=== PATIENT | male | born 1950 | race Caucasian/White ===

== ENCOUNTER 2016-05-28 11:34 | Emergency (ER) | payer OTHER ==
[2016-05-28 11:42] VITALS: BP 146/70; TEMP 99.2; BMI 28.8
[2016-05-28 12:13] LABS: BASOPHILS # (AUTO) 0.1 K/uL (0-0.2); BASOPHILS % (AUTO) 1.3 % (0.0-3.0); EOSINOPHILS # (AUTO) 1.3 K/ul (0.0-0.7); EOSINOPHILS % (AUTO) 14.2 % (0.0-7.0); HEMATOCRIT 45.3 % (42.0-52.0); HEMOGLOBIN 15.4 g/dl (14.0-18.0); IMMATURE GRANULOCYTE % (AUTO) 0.7 % (0.0-5.0); LYMPHOCYTES # (AUTO) 2.3 K/uL (0.60-3.4); LYMPHOCYTES % (AUTO) 24.8 (10.0-50.0); MEAN CORPUSCULAR HEMOGLOBIN 29.5 pg (27.0-31.0); MEAN CORPUSCULAR VOLUME 86.8 fl (80.0-94.0); MONOCYTES # (AUTO) 0.7 K/uL (0.4-2.0); MONOCYTES % (AUTO) 7.8 (0-10); NEUTROPHILS # (AUTO) 4.7 K/ul (2.0-6.9); NEUTROPHILS % (AUTO) 51.2; PLATELET COUNT 235 10^3/uL (140-440); RED BLOOD COUNT 5.22 10^6/ul (4.70-6.10); WHITE BLOOD COUNT 9.23 K/ul (4.2-10.2)
--- NOTE | 2016-05-28 12:14 | ED.PDOC ---
General ED Provider: Dr. HAZEL SORIANO JR Chief Complaint: Chest Pain Stated Complaint: chest pain and pressure 2 months, worse over past two days deep inspiration, pain midsternal and right side chest, compression right sided pain[seen at [facility] for this but dx as ear infection]99.2 77 16 97% 146/70 7/ 10 productive cough of white thick sputum... local clinic sent to ED,productive cough thick white sputum, pain deep inspiration,tender could not get a deep breath,on antibiodics and steriods. patient notes he is on combivent and is on albuterol inhalers Time Seen by Physician: 12:26 Mode of Arrival: Walk-In Information Source: Patient Exam Limitations: No limitations Primary Care Provider: KAPIL LAGUERRE Nursing and Triage Documentation Reviewed and Agree: No Review of Systems - Review Of Systems Constitutional: Reports: Malaise All Other Systems: Other Past Medical History - Past Medical History Previously Healthy: Yes Endocrine: Reports: DM 2, Dyslipidemia Cardiovascular: Reports: CAD, Hypertension, CHF Respiratory: Reports: COPD, PE (BLOOD CLOT/LUNG) Hematological: Reports: None Gastrointestinal: Reports: None Genitourinary: Reports: None Neuro/Psych: Reports: CVA, Migraine, Depression Musculoskeletal: Reports: Arthritis Cancer: Reports: None - Surgical History General Surgical History: Reports: CABG (5 years ago) - Family History Family History: Reports: Unknown - Social History Smoking Status: Current every day smoker, Light tobacco smoker Amount Smokes or Chewing Tobacco Used Daily: since 8 yo decreased from 2ppd to 7 cig a day over past two months Hx Substance Use: No Alcohol Screening: None - Immunizations Tetanus Shot up to Date: No Physical Exam - Physical Exam Appearance: Well-appearing Pain Distress: Mild Eyes: KM, EOMI, Conjunctiva clear ENT: Ears normal, Nose normal, Oropharynx normal Neck: Supple Respiratory: Airway patent, Breath sounds diminished, Rhonchi, Wheezes Cardiovascular: RRR, Pulses normal, No rub, No murmur GI/: Soft, Nontender, No masses, Bowel sounds normal, No Organomegaly Musculoskeletal: Normal strength, ROM intact, No edema, No calf tenderness Skin: Warm, Dry, Normal color Neurological: Sensation intact, Motor intact, Reflexes intact, Cranial nerves intact, Alert, Oriented Psychiatric: Affect appropriate, Mood appropriate Interpretation - Radiology Interpretation Radiology Interpretation By: Radiologist Radiology Results: Positive (BRONCHITIS BRONCHIOLITIS) Exam Interpreted: CXR - EKG Interpretation Time of EKG #1: 12:05 Rate: Normal Rhythm: Sinus ST Segment: Other (RBBB) Re-Evaluation - Re-Evaluation Time of Re-Evaluation: 13:05 (dd neg at 434) Status: Unchanged Vital Signs Stable: Yes Appearance: NAD Critical Care Note - Critical Care Note Total Time (mins): 0 Course - Course Hematology/Chemistry: 05/28/16 12:00 05/28/16 12:00 Orders, Labs, Meds: Lab Review 05/28/16 12:00 WBC 9.23 RBC 5.22 Hgb 15.4 Hct 45.3 MCV 86.8 MCH 29.5 MCHC 34.0 RDW Coeff of [place] 14.2 Plt Count 235 Immature Gran % (Auto) 0.7 Neut % (Auto) 51.2 Lymph % (Auto) 24.8 [place] % (Auto) 7.8 Eos % (Auto) 14.2 H Baso % (Auto) 1.3 Immature Gran # (Auto) 0.1 Neut # 4.7 Lymph # 2.3 [place] # 0.7 Eos # 1.3 H Baso # 0.1 D-Dimer 0.47 Sodium 140 Potassium 3.9 Chloride 106 Carbon Dioxide 26 Anion Gap 11.9 BUN 34 H Creatinine 1.29 H Estimated GFR (MDRD) 56.00 BUN/Creatinine Ratio 26.35 Glucose 235 H Calcium 11.1 H Total Bilirubin 0.62 AST 17 ALT 26 Alkaline Phosphatase 73 Total Creatine Kinase 46 Troponin I 0.0120 B-Natriuretic Peptide 23 Total Protein 6.8 Albumin 3.6 Globulin 3.2 Albumin/Globulin Ratio 1.13 Orders Category Date Time Status EKG-(ED ONLY) Stat CARDIO 05/28/16 11:51 Completed NEBULIZER TREATMENT Stat CARDIO 05/28/16 15:20 Ordered NPO REMINDER: IMAGING ONCE CARE 05/28/16 13:09 Active B-TYPE NATRIURETIC PEPTIDE Stat LAB 05/28/16 12:00 Completed CBC W/ AUTO DIFF Stat LAB 05/28/16 12:00 Completed COMPREHENSIVE METABOLIC PANEL Stat LAB 05/28/16 12:00 Completed CREATINE KINASE Stat LAB 05/28/16 12:00 Completed D-DIMER Stat LAB 05/28/16 12:00 Completed TROPONIN I Stat LAB 05/28/16 12:00 Completed Ipratropium/Albuterol Neb [Duoneb] MEDS 05/28/16 15:20 Discontinued 1 vial NEB ONCE STA Sodium Chloride 0.9% [Sodium Chloride] 1,000 ml MEDS 05/28/16 14:28 Discontinued IV 200 mls/hr CT CHEST W/WO CONTRAST Stat RADS 05/28/16 13:08 Completed Medications Discontinued Medications Generic Name Dose Route Start Last Admin Trade Name Vigrinia PRN Reason Stop Dose Admin Albuterol/Ipratropium 1 vial 05/28/16 15:20 05/28/16 15:29 Duoneb NEB 05/28/16 15:21 1 vial ONCE STA Administration Sodium Chloride 1,000 mls @ 200 mls/hr 05/28/16 14:28 05/28/16 14:41 Sodium Chloride IV 05/28/16 19:27 200 mls/hr .Q5H STA Administration Vital Signs: Temp Pulse Resp BP Pulse Ox 05/28/16 11:34 99.2 F 77 16 146/70 H 97 Departure - Departure Time of Disposition: 15:46 Disposition: HOME SELF-CARE Discharge Problem: Bronchitis Instructions: Chronic Bronchitis (ED) Condition: Fair Pt referred to PMD for follow-up: Yes Additional Instructions: mucinex twice a day continue inhalers follow up with french translator next week as scheduled Prescriptions: Guaifenesin [Mucinex] 600 mg PO BID #60 tab.er.12h Allergies/Adverse Reactions: Allergies ibuprofen Adverse Reaction (Intermediate, Verified 05/28/16 11:50) Vomiting clopidogrel bisulfate [From Plavix] Adverse Reaction (Verified 05/28/16 11:50) codeine Adverse Reaction (Verified 05/28/16 11:50) doxycycline Adverse Reaction (Verified 05/28/16 11:50) levofloxacin [From Levaquin] Adverse Reaction (Verified 05/28/16 11:50) morphine Adverse Reaction (Verified 05/28/16 11:50) Home Medications: Ambulatory Orders Aspirin [Valerie Chewable] 81 mg PO DAILY 01/12/13 Lisinopril [Zestril] 20 mg PO DAILY 01/12/13 Theophylline Anhydrous [Theophylline] 300 mg PO BID 01/12/13 Fenofibrate Nanocrystallized [Fenofibrate] 160 mg PO DAILY 06/08/14 Budesonide/Formoterol Fumarate [Symbicort 160-4.5 Mcg Inhaler] 2 puff IH BID 04/29 Atorvastatin Calcium [Lipitor] 40 mg PO BEDTIME 07/19/15 Dexlansoprazole [Dexilant] 30 mg PO DAILY 12/02/15 Isosorbide Dinitrate 40 mg PO BID 12/02/15 Cholecalciferol (Vitamin D3) [Vitamin D3] 1,000 units PO DAILY 05/28/16 Guaifenesin [Mucinex] 600 mg PO BID #60 tab.er.12h 05/28/16 Prasugrel HCl [Effient] 5 mg PO DAILY 05/28/16
[2016-05-28 12:42] LABS: ALBUMIN 3.6 g/dL (3.4-5.0); ALBUMIN/GLOBULIN RATIO 1.13; ANION GAP 11.9; BILIRUBIN,TOTAL 0.62 mg/dL (0.00-1.20); BUN/CREATININE RATIO 26.35; CALCIUM 11.1 mg/dL (8.2-10.2); CREATININE 1.29 mg/dL (0.60-1.10); POTASSIUM 3.9 mmol/L (3.5-5.1); TOTAL PROTEIN 6.8 g/dL (5.8-8.1); TROPONIN I 0.012 ng/ml (0.0000-0.4000)
[2016-05-28] MEDS ORDERED: SODIUM CHLORIDE 1,000 ML IV STA (14:28)
--- NOTE | 2016-05-28 15:10 | CT ---
EXAM: CT examination of the chest without intravenous contrast followed by CT examination of the est with intravenous contrast, axial, sagittal, and coronal reconstructed images. Comparison: CT scan of the chest performed on 05/07/2016. Reason for study: Worsening shortness of air. FINDINGS: No pneumothorax, pleural effusion, focal consolidation. There is persistent prominence o f the bilateral lower lobe bronchi suggesting bronchiolitis / bronchitis. 5 mm nodule in the left u pper lobe (image 30) and 6.5 and 3.5 mm nodules in the left lower lobe (image 43, 44) are unchanged from the previous examination dated 05/07/2016. Atherosclerotic disease of the aorta and distal arterial vasculature to include the coronary vessels . Postoperative changes after midline sternotomy and intracardiac device placement. The liver, spleen, adrenal glands, and pancreas are unremarkable. There are several small cystic st ructures in both kidneys are too small to actively characterize but likely represent simple cysts. The gallbladder has been removed. Degenerative disease is seen in the thoracic spine with flowing anterior osteophytosis. Healing/heal ed right posterior T8 rib fracture. IMPRESSION: 1. Persistent prominence of the bilateral lower lobe bronchi suggesting bronchiolitis / bronchitis. 2. Similar appearing 5 mm left upper lobe nodule and to 6.5 and 3.5 mm left lower lobe nodules are unchanged in size from the prior CT examination performed on 05/07/2016. 6-month follow-up is recom mended to document stability. 3. Degenerative, atherosclerotic, and senescent changes as described.
[2016-05-28] MEDS ORDERED: DUONEB NEB STA (15:20)
== END 2016-05-28 16:04 | disposition home or self-care (01) ==
LOC: ED 11:34
DX: J42 Unspecified chronic bronchitis (principal); J44.1 Chronic obstructive pulmonary disease with (acute) exacerbation; F17.210 Nicotine dependence, cigarettes, uncomplicated; I10 Essential (primary) hypertension; E78.5 Hyperlipidemia, unspecified; E11.9 Type 2 diabetes mellitus without complications; I25.810 Atherosclerosis of coronary artery bypass graft(s) without angina pectoris; Z79.899 Other long term (current) drug therapy; Z86.711 Personal history of pulmonary embolism; Z86.73 Personal history of transient ischemic attack (TIA), and cerebral infarction without residual deficits
CPT/HCPCS: 36415; 80053; 82550; 83880; 84484; 85025; 85379; 93005; 93010; 94640; 99283

== ENCOUNTER 2016-07-12 07:32 | Outpatient (CLI) ==
[2016-07-12 08:11] LABS: CREATININE 1.13 mg/dL (0.60-1.10)
--- NOTE | 2016-07-12 09:41 | CT ---
EXAM: CT soft tissue neck with contrast. HISTORY: Sialoadenitis. Right neck swelling. Attention parotid gland. COMPARISON: Cervical spine CT 01/12/2013. TECHNIQUE: Multiple axial images of the neck were obtained following intravenous administration of 75 mL of Omnipaque 350, low osmolar. Images were reformatted in the sagittal and coronal plane. FINDINGS: There is moderate mucus within both maxillary sinuses with mild mucosal thickening in the ethmoid sinuses. No intracranial or intraorbital abnormality identified. The parotid and submandibular glands are symmetric. No significant inflammation is seen surrounding the salivary glands. No salivary gland calcifications or ductal dilatation identified. The pharyngeal soft tissues, epiglottis and laryngeal structures appear unremarkable. Subglottic ai rway is normal in caliber. Thyroid gland is normal in size. Small low-density left thyroid nodules suspected on axial image 85 . Additionally 0.8 x 0.5 cm nodule is seen posterior to the right thyroid lobe on axial image 83. Possible similar left-sided nodule measuring 0.6 x 0.4 cm on axial image 79 versus posterior extensi on of the left thyroid lobe. Nonenlarged mesenteric lymph nodes are present. Emphysematous changes present in the lung apices. There has been previous sternotomy. Degenerative changes present in the spine. Vascular structures of the neck are patent. Atherosclerotic calcifications are present. Left-sided electronic cardiac device noted. IMPRESSION: 1. No evidence for sialoadenitis or other acute abnormality of the neck soft tissues. 2. Sinusitis. 3. Small nodule posterior to the right thyroid gland. Correlate for clinical indications of parath yroid adenoma/hyperparathyroidism. Similar lesion on the left not excluded although this may simply be prominent posterior extension of the left thyroid lobe. Small left thyroid nodule also suspecte d.
== END 2016-07-12 07:33 | disposition home or self-care (01) ==
LOC: RAD 07:32
PROVIDERS: ATTEND Physician Assistant
DX: K11.20 Sialoadenitis, unspecified (principal)
CPT/HCPCS: 36415; 82565

== ENCOUNTER 2016-07-30 16:11 | Outpatient (CLI) ==
[2016-07-30 16:42] LABS: FLU INTERNAL QC INTERNAL QC VALID; RAPID FLU A NEGATIVE (NEGATIVE); RAPID FLU B NEGATIVE (NEGATIVE)
== END 2016-07-30 16:12 | disposition home or self-care (01) ==
LOC: LAB 16:11
PROVIDERS: ATTEND Physician Assistant
DX: R51 Headache (principal)
CPT/HCPCS: 87804

== ENCOUNTER 2016-08-05 14:18 | Emergency (ER) | payer OTHER ==
[2016-08-05 14:18] VITALS: BMI 28.8
[2016-08-05 14:24] VITALS: BP 117/76; TEMP 97.3
--- NOTE | 2016-08-05 14:35 | ED.PDOC ---
General ED Provider: Dr. HAZEL SORIANO JR Chief Complaint: Respiratory Complaint Stated Complaint: patient states he has been sick for approx. 2 months with upper resp. sx. states he has been having yellow drainage. states he has taken several antibiotics (including ampicillin and biaxin) states he has not gotten any better. c/o cough prod of thick white phlegm.[End]97.3 79 16 97% 117 /76 7/10 usingover the counter decongestants and antibiotics(last ampicillin). nasal spray. pharmacy called, no loc has had bactrim on 07/30 and augmentin on 07/08 also doxycycline in april Time Seen by Physician: 14:35 Mode of Arrival: Walk-In Information Source: Patient Exam Limitations: No limitations Primary Care Provider: KAPIL LAGUERRE Nursing and Triage Documentation Reviewed and Agree: No Review of Systems - Review Of Systems Constitutional: Reports: Malaise Respiratory: Reports: Cough All Other Systems: Other Past Medical History - Past Medical History Previously Healthy: Yes Endocrine: Reports: DM 2, Dyslipidemia Cardiovascular: Reports: CAD, Hypertension, CHF Respiratory: Reports: COPD, PE (BLOOD CLOT/LUNG) Hematological: Reports: Other Gastrointestinal: Reports: None Genitourinary: Reports: None, CKD Neuro/Psych: Reports: CVA, Migraine, Depression Musculoskeletal: Reports: Arthritis Cancer: Reports: None - Surgical History General Surgical History: Reports: CABG (5 years ago) - Family History Family History: Reports: Unknown - Social History Smoking Status: Current every day smoker, Light tobacco smoker Hx Substance Use: No Alcohol Screening: None Physical Exam - Physical Exam Appearance: Ill-appearing Ill-appearing: Mild Pain Distress: Mild Eyes: KM, EOMI, Conjunctiva clear ENT: Ears normal, Nose normal, Oropharynx normal Neck: Supple Respiratory: Airway patent, Breath sounds clear, Breath sounds equal, Respirations nonlabored Cardiovascular: RRR, Pulses normal, No rub, No murmur GI/: Soft, Nontender, No masses, Bowel sounds normal, No Organomegaly Musculoskeletal: Normal strength, ROM intact, No edema, No calf tenderness Skin: Warm, Dry, Normal color Neurological: Sensation intact, Motor intact, Reflexes intact, Cranial nerves intact, Alert, Oriented Critical Care Note - Critical Care Note Total Time (mins): 5 Course - Course Hematology/Chemistry: 08/05/16 15:05 08/05/16 15:05 Orders, Labs, Meds: Lab Review 08/05/16 15:05 WBC 9.85 RBC 5.08 Hgb 15.0 Hct 43.6 MCV 85.8 MCH 29.5 MCHC 34.4 RDW Coeff of [place] 13.7 Plt Count 241 Immature Gran % (Auto) 0.6 Neut % (Auto) 51.1 Lymph % (Auto) 29.6 [place] % (Auto) 7.2 Eos % (Auto) 10.1 H Baso % (Auto) 1.4 Immature Gran # (Auto) 0.1 Neut # 5.0 Lymph # 2.9 [place] # 0.7 Eos # 1.0 H Baso # 0.1 Sodium 137 Potassium 4.0 Chloride 109 H Carbon Dioxide 20 L Anion Gap 12.0 BUN 22 H Creatinine 0.96 Estimated GFR (MDRD) 79.00 BUN/Creatinine Ratio 22.91 Glucose 161 H Calcium 11.0 H Total Bilirubin 0.50 AST 16 ALT 15 Alkaline Phosphatase 117 B-Natriuretic Peptide 30 Total Protein 6.9 Albumin 3.4 Globulin 3.5 Albumin/Globulin Ratio 0.97 Influenza A (Rapid) Negative Influenza B (Rapid) Negative Orders Category Date Time Status B-TYPE NATRIURETIC PEPTIDE Stat LAB 08/05/16 15:05 Completed BLOOD CULTURE Stat LAB 08/05/16 15:05 Completed CBC W/ AUTO DIFF Stat LAB 08/05/16 15:05 Completed COMPREHENSIVE METABOLIC PANEL Stat LAB 08/05/16 15:05 Completed MOLECULAR GROUP A STREP Stat LAB 08/05/16 15:05 Completed RAPID FLU A/B Stat LAB 08/05/16 15:05 Completed STREP SCREEN Stat LAB 08/05/16 15:05 Completed CHEST, 2 VIEWS PA & LAT Stat RADS 08/05/16 14:51 Completed Vital Signs: Temp Pulse Resp BP Pulse Ox 08/05/16 14:20 97.3 F L 79 16 117/76 97 Departure - Departure Time of Disposition: 16:07 Disposition: HOME SELF-CARE Discharge Problem: COPD exacerbation Instructions: COPD (Chronic Obstructive Pulmonary Disease) (ED) Condition: Fair Pt referred to PMD for follow-up: Yes Additional Instructions: RECOMMEND STOP SMOKING ANTIBIOTIC UNTIL GONE RECOMMEND QUIT SMOKING Prescriptions: Azithromycin [Zithromax] 250 mg PO DIRECTED #6 tablet Guaifenesin/Dextromethorphan [Guaifenesin Dm Syrup] 10 ml PO QID PRN #120 syrup PRN Reason: Cough Allergies/Adverse Reactions: Allergies ibuprofen Adverse Reaction (Intermediate, Verified 08/05/16 14:24) Vomiting clopidogrel bisulfate [From Plavix] Adverse Reaction (Verified 08/05/16 14:24) codeine Adverse Reaction (Verified 08/05/16 14:24) doxycycline Adverse Reaction (Verified 08/05/16 14:24) levofloxacin [From Levaquin] Adverse Reaction (Verified 08/05/16 14:24) morphine Adverse Reaction (Verified 08/05/16 14:24) Home Medications: Ambulatory Orders Aspirin [Valerie Chewable] 81 mg PO DAILY 01/12/13 Lisinopril [Zestril] 20 mg PO DAILY 01/12/13 Theophylline Anhydrous [Theophylline] 300 mg PO BID 01/12/13 Fenofibrate Nanocrystallized [Fenofibrate] 160 mg PO DAILY 06/08/14 Atorvastatin Calcium [Lipitor] 40 mg PO BEDTIME 07/19/15 Dexlansoprazole [Dexilant] 30 mg PO DAILY 12/02/15 Isosorbide Dinitrate 2 tab PO BID 12/02/15 Cholecalciferol (Vitamin D3) [Vitamin D3] 1,000 units PO DAILY 05/28/16 Prasugrel HCl [Effient] 5 mg PO DAILY 05/28/16 Albuterol Sulfate 0.083% Neb [Albuterol 0.083% Neb] 1 vial NEB RTQ8H 08/05/16 Amlodipine Besylate 2.5 mg PO DAILY 08/05/16 Azithromycin [Zithromax] 250 mg PO DIRECTED #6 tablet 08/05/16 Docusate Sodium [Stool Softener] 100 mg PO PRN PRN 08/05/16 Fluticasone/Salmeterol 250/50 [Advair 250-50 Diskus] 1 puff IH BID 08/05/16 Guaifenesin/Dextromethorphan [Guaifenesin Dm Syrup] 10 ml PO QID PRN #120 syrup 08/05/16 Hydrocodone Bit/Acetaminophen [[place] 10-325] 1 tab PO PRN PRN 08/05/16 Insulin NPL/Insulin Lispro [Humalog Mix 75-25] 4 unit SUBCUT BID 08/05/16
[2016-08-05 15:15] LABS: BASOPHILS # (AUTO) 0.1 K/uL (0-0.2); BASOPHILS % (AUTO) 1.4 % (0.0-3.0); EOSINOPHILS % (AUTO) 10.1 % (0.0-7.0); HEMATOCRIT 43.6 % (42.0-52.0); IMMATURE GRANULOCYTE % (AUTO) 0.6 % (0.0-5.0); LYMPHOCYTES # (AUTO) 2.9 K/uL (0.60-3.4); LYMPHOCYTES % (AUTO) 29.6 (10.0-50.0); MEAN CORPUSCULAR HEMOGLOBIN 29.5 pg (27.0-31.0); MEAN CORPUSCULAR HGB CONC 34.4 (31.8-35.4); MEAN CORPUSCULAR VOLUME 85.8 fl (80.0-94.0); MONOCYTES # (AUTO) 0.7 K/uL (0.4-2.0); MONOCYTES % (AUTO) 7.2 (0-10); NEUTROPHILS % (AUTO) 51.1; PLATELET COUNT 241 10^3/uL (140-440); RED BLOOD COUNT 5.08 10^6/ul (4.70-6.10); WHITE BLOOD COUNT 9.85 K/ul (4.2-10.2)
[2016-08-05 15:33] LABS: FLU INTERNAL QC INTERNAL QC VALID; RAPID FLU A NEGATIVE (NEGATIVE); RAPID FLU B NEGATIVE (NEGATIVE)
[2016-08-05 15:36] LABS: ALBUMIN 3.4 g/dL (3.4-5.0); ALBUMIN/GLOBULIN RATIO 0.97; BILIRUBIN,TOTAL 0.5 mg/dL (0.00-1.20); BUN/CREATININE RATIO 22.91; CREATININE 0.96 mg/dL (0.60-1.10); TOTAL PROTEIN 6.9 g/dL (5.8-8.1)
--- NOTE | 2016-08-05 16:10 | DI ---
EXAM: CHEST FRONTAL AND LATERAL VIEWS HISTORY: Cough. COMPARISON: 05/06/2016 FINDINGS: Upper limit normal heart size is stable. At least mild aortic atherosclerosis. Prior diane rnotomy. Left-sided pacemaker unit is stable. Mild hyperinflation. No acute infiltrates are seen. There is no consolidation, visible pleural fluid or pneumothorax. Bones reveal no acute fracture. IMPRESSION: No acute cardiopulmonary process.
== END 2016-08-05 16:24 | disposition home or self-care (01) ==
LOC: ED 14:18
DX: J44.1 Chronic obstructive pulmonary disease with (acute) exacerbation (principal); E11.9 Type 2 diabetes mellitus without complications; E78.5 Hyperlipidemia, unspecified; I50.9 Heart failure, unspecified; I10 Essential (primary) hypertension; I25.810 Atherosclerosis of coronary artery bypass graft(s) without angina pectoris; N18.9 Chronic kidney disease, unspecified; F17.210 Nicotine dependence, cigarettes, uncomplicated; Z79.899 Other long term (current) drug therapy; Z86.711 Personal history of pulmonary embolism; Z86.73 Personal history of transient ischemic attack (TIA), and cerebral infarction without residual deficits
CPT/HCPCS: 36415; 80053; 83880; 85025; 87040; 87651; 87804; 87880; 99283

== ENCOUNTER 2016-09-02 13:48 | Outpatient (CLI) | payer OTHER ==
[2016-09-02 15:06] LABS: ALBUMIN 3.1 g/dL (3.4-5.0); ANION GAP 10.9; BUN/CREATININE RATIO 20.18; CALCIUM 10.4 mg/dL (8.2-10.2); CREATININE 1.09 mg/dL (0.60-1.10); PHOSPHORUS 1.9 mg/dL (2.3-3.7); POTASSIUM 3.9 mmol/L (3.5-5.1)
== END 2016-09-02 13:49 | disposition home or self-care (01) ==
LOC: LAB 13:48
PROVIDERS: ATTEND Internal Medicine Endocrinology, Diabetes & Metabolism
DX: E83.52 Hypercalcemia (principal)
CPT/HCPCS: 36415; 80069; 82164; 82306; 82652; 83970; 84443

== ENCOUNTER 2016-10-25 10:35 | Outpatient (CLI) | payer OTHER ==
--- NOTE | 2016-10-25 11:16 | DI ---
EXAM: PA and lateral views of the chest HISTORY: Chest tightness COMPARISON: Chest x-ray 08/05/2016 and multiple priors including CT chest 05/28/2016 FINDINGS: The cardiomediastinal silhouette is unchanged with sternotomy wires and lead wires. Ther e is no pneumothorax or pleural effusion. There is no consolidation, nodule or mass. The osseous s tructures demonstrate mild degenerative disease. IMPRESSION: No acute cardiopulmonary process
[2016-10-25 11:29] LABS: BASOPHILS # (AUTO) 0.1 K/uL (0-0.2); BASOPHILS % (AUTO) 1.2 % (0.0-3.0); EOSINOPHILS # (AUTO) 0.7 K/ul (0.0-0.7); EOSINOPHILS % (AUTO) 8.5 % (0.0-7.0); HEMATOCRIT 41.8 % (42.0-52.0); HEMOGLOBIN 14.5 g/dl (14.0-18.0); IMMATURE GRANULOCYTE % (AUTO) 0.9 % (0.0-5.0); LYMPHOCYTES # (AUTO) 2.5 K/uL (0.60-3.4); LYMPHOCYTES % (AUTO) 32.1 (10.0-50.0); MEAN CORPUSCULAR HEMOGLOBIN 29.9 pg (27.0-31.0); MEAN CORPUSCULAR HGB CONC 34.7 (31.8-35.4); MEAN CORPUSCULAR VOLUME 86.2 fl (80.0-94.0); MONOCYTES # (AUTO) 0.8 K/uL (0.4-2.0); MONOCYTES % (AUTO) 9.8 (0-10); NEUTROPHILS # (AUTO) 3.7 K/ul (2.0-6.9); NEUTROPHILS % (AUTO) 47.5; PLATELET COUNT 204 10^3/uL (140-440); RED BLOOD COUNT 4.85 10^6/ul (4.70-6.10); WHITE BLOOD COUNT 7.79 K/ul (4.2-10.2)
--- NOTE | 2016-10-25 11:44 | US ---
Bilateral lower extremity venous Doppler HISTORY: Pain and tenderness Bilateral lower extremity. FINDINGS: Lower extremity venous structures examined for spontaneous flow, compression and augmenta tion. The common femoral vein, and greater saphenous, profunda, femoral, popliteal, peroneal, anter ior tibial and posterior tibial veins were examined. Visualized vessels are patent to spontaneous f low, compression and augmentation. IMPRESSION: 1.. No evidence of deep venous thrombosis Bilateral lower extremity.
[2016-10-25 11:48] LABS: ALBUMIN 3.2 g/dL (3.4-5.0); ALBUMIN/GLOBULIN RATIO 1.07; ANION GAP 9.7; BILIRUBIN,TOTAL 0.48 mg/dL (0.00-1.20); BUN/CREATININE RATIO 25.23; CREATININE 1.07 mg/dL (0.60-1.10); POTASSIUM 4.7 mmol/L (3.5-5.1); TOTAL PROTEIN 6.2 g/dL (5.8-8.1)
== END 2016-10-25 10:36 | disposition home or self-care (01) ==
LOC: RAD 10:35
PROVIDERS: ATTEND Physician Assistant
DX: R60.0 Localized edema (principal); R07.89 Other chest pain
CPT/HCPCS: 36415; 80053; 85025; 93005; 93010

== ENCOUNTER 2016-10-27 06:23 | Outpatient (CLI) | payer OTHER ==
--- NOTE | 2016-10-27 10:35 | ECHO2D ---
Date of Exam: 10/27/2016 Ordering Physician: KAPIL LAGUERRE Reason for Echo: LOWER EXTREMITY EDEMA, HYPERTENSION, CABG 2013, PACEMAKER 2015 M-Mode Normal Adult Results LV Dimensions Normal Adult Results AoV Opening excursions >1.6 >1.6 LVEDD-base- 3.5-5.8 4.8 Ao root dimensions 2.0-3.7 3.4 LVESD-base- 3.1-4.6 L. Atrium dimensions 1.9-3.8 4.9 Post. Wall thickness 0.8-1.1 1.5 IV septum (thickness) 0.7-1.2 1.4 Post. Wall excursion 0.72-1.3 NORMAL Septal motion 0.6 Systolic motion R. Ventricular cavity 1.5-2.0 NORMAL LVEF 60% 53% Paradoxical septal wall motion NORMAL 2-D :MILDLY HYPOKINETIC SEPTAL WALL. NORMAL VALVES. NO EFFUSION, NO THROMBOSIS. ENLARGED LEFT ATRIAL CAVITY. NORMAL LEFT VENTRICLE SIZE M-MODE: MV: NORMAL AV: NORMAL TV: NORMAL PV: CHAMBER SIZE: ENLARGED LEFT ATRIAL CAVITY WALL MOTION: MILDLY HYPOKINETIC SEPTUM PERICARDIUM: NORMAL INTERPRETATION: 1. LEFT VENTRICULAR HYPERTROPHY WITH ENLARGED LEFT ATRIAL CAVITY 2. HYPOKINETIC SEPTUM WITH LEFT VENTRICULAR EJECTION FRACTION 53% 3. NORMAL VALVES 4. NORMAL LEFT VENTRICLE SIZE MTDD
== END 2016-10-27 06:24 | disposition home or self-care (01) ==
LOC: CAR 06:23
PROVIDERS: ATTEND Physician Assistant
DX: R60.0 Localized edema (principal)

== ENCOUNTER 2016-11-04 09:44 | Outpatient (CLI) ==
--- NOTE | 2016-11-04 13:45 | DI ---
Exam: Three views of the right foot Clinical indication: Edema. Findings: There is no gross soft tissue abnormality. There is a surgical clip within the medial aspect of the ankle. There is an enthesophyte on the calcaneus at the insertion of plantar fascia. Otherwise, there are no fractures, dislocations, physeal injuries or other significant bony abnormality. Impression: 1. Enthesophyte on the calcaneus at the insertion of plantar fascia. 2. Otherwise negative radiographs of the right foot.
--- NOTE | 2016-11-04 13:47 | DI ---
EXAM: RIGHT ANKLE THREE VIEWS HISTORY: Localized edema without injury. FINDINGS: No comparison. The bone and joint structures of the ankle appear normal. No joint effus ion is seen. Diffuse subcutaneous edema. A few scattered surgical clips along the lateral leg soft tissues. IMPRESSION: Diffuse soft tissue edema. Bone joint structures of the ankle are within normal limits.
== END 2016-11-04 09:45 | disposition home or self-care (01) ==
LOC: RAD 09:44
PROVIDERS: ATTEND Physician Assistant
DX: R60.0 Localized edema (principal)

== ENCOUNTER 2016-11-10 15:57 | Outpatient (CLI) ==
[2016-11-10 16:32] LABS: ALBUMIN 3.5 g/dL (3.4-5.0); ANION GAP 15.8; BUN/CREATININE RATIO 26.6; CALCIUM 10.8 mg/dL (8.2-10.2); CREATININE 1.09 mg/dL (0.60-1.10); PHOSPHORUS 2.5 mg/dL (2.3-3.7); POTASSIUM 3.8 mmol/L (3.5-5.1)
== END 2016-11-10 15:58 | disposition home or self-care (01) ==
LOC: LAB 15:57
PROVIDERS: ATTEND Internal Medicine Endocrinology, Diabetes & Metabolism
DX: E83.52 Hypercalcemia (principal)
CPT/HCPCS: 36415; 80069; 83970

== ENCOUNTER 2016-11-23 17:22 | Emergency (ER) | payer OTHER ==
[2016-11-23 17:34] VITALS: BP 130/75; TEMP 97.6; BMI 28.1
[2016-11-23] MEDS ORDERED: GI COCKTAIL PO STA (17:45)
[2016-11-23 18:02] LABS: BASOPHILS # (AUTO) 0.1 K/uL (0-0.2); BASOPHILS % (AUTO) 1.1 % (0.0-3.0); EOSINOPHILS # (AUTO) 0.9 K/ul (0.0-0.7); HEMATOCRIT 42.4 % (42.0-52.0); HEMOGLOBIN 14.9 g/dl (14.0-18.0); IMMATURE GRANULOCYTE % (AUTO) 0.9 % (0.0-5.0); LYMPHOCYTES # (AUTO) 2.5 K/uL (0.60-3.4); MEAN CORPUSCULAR HEMOGLOBIN 29.6 pg (27.0-31.0); MEAN CORPUSCULAR HGB CONC 35.1 (31.8-35.4); MEAN CORPUSCULAR VOLUME 84.3 fl (80.0-94.0); MONOCYTES # (AUTO) 0.8 K/uL (0.4-2.0); MONOCYTES % (AUTO) 8.8 (0-10); NEUTROPHILS # (AUTO) 4.2 K/ul (2.0-6.9); NEUTROPHILS % (AUTO) 49.2; PLATELET COUNT 227 10^3/uL (140-440); RED BLOOD COUNT 5.03 10^6/ul (4.70-6.10); WHITE BLOOD COUNT 8.51 K/ul (4.2-10.2)
--- NOTE | 2016-11-23 18:08 | ED.PDOC ---
General ED Provider: Dr. NOVA NIEVES Chief Complaint: Abdominal Pain Stated Complaint: CHRONIC ABDOMINAL PAIN Time Seen by Physician: 17:30 (NO NEW CHANGES IN LOCATION OR PAIN PATTERN) Mode of Arrival: Walk-In Information Source: Patient Exam Limitations: No limitations Primary Care Provider: KAPIL LAGUERRE Nursing and Triage Documentation Reviewed and Agree: Yes GI Complaint Exam - Abdominal Pain Complaint/Exam Onset: Gradual Duration: CHRONIC Symptoms Are: Still present Timing: Intermittent Initial Severity: Mild Current Severity: Mild Location of Pain: Epigastric Character: Reports: Aching Aggravating: Reports: None Alleviating: Reports: None Associated Signs and Symptoms: Denies: Diaphoresis, Fever, Cough, Chest pain, Dizziness, Back pain, Constipation, Blood in stool, Dysuria, Urinary frequency, Decreased urine output, Decreased appetite, Discharge, Nausea, Vomiting, Diarrhea, Decreased activity Related History: Reports: Similar episode AAA Risk Factors: Reports: Hypertension Cardiac Risk Factors: Reports: DM, Hypertension Testicular Torsion Risk Factors: Reports: None Surgical Obstruction Risk Factors: Reports: None Abdominal Findings: Present: None Differential Diagnoses: Appendicitis, Bowel Obstruction, Constipation, Diverticulitis, Gastroenteritis, UTI Quality Indicators for AMI: EKG in 10min. Quality Indicators for Cardiac Chest Pain: EKG in 10min. Quality Indicator For Non-Traumatic Chest Pain/Syncope: EKG Performed Review of Systems - Review Of Systems Constitutional: Reports: No symptoms Eyes: Reports: No symptoms Ears, Nose, Mouth, Throat: Reports: No symptoms Respiratory: Reports: No symptoms Cardiac: Reports: No symptoms GI: Reports: Abdominal pain : Reports: No symptoms Musculoskeletal: Reports: No symptoms Skin: Reports: No symptoms Neurological: Reports: No symptoms Endocrine: Reports: No symptoms Hematologic/Lymphatic: Reports: No symptoms All Other Systems: Reviewed and Negative Past Medical History - Past Medical History Previously Healthy: Yes Endocrine: Reports: DM 2, Dyslipidemia Cardiovascular: Reports: CAD, Hypertension, CHF Respiratory: Reports: COPD, PE (BLOOD CLOT/LUNG) Hematological: Reports: Other Gastrointestinal: Reports: None Genitourinary: Reports: None, CKD Neuro/Psych: Reports: CVA, Migraine, Depression Musculoskeletal: Reports: Arthritis Cancer: Reports: None Other Pertinent Past Medical History: htn dm chl cva chf copd kd 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 - Surgical History General Surgical History: Reports: CABG (5 years ago) - Family History Family History: Reports: Unknown - Social History Smoking Status: Current every day smoker Hx Substance Use: No Alcohol Screening: None - Immunizations Tetanus Shot up to Date: Yes Physical Exam - Physical Exam Appearance: Well-appearing, No pain distress, Well-nourished Eyes: KM, EOMI, Conjunctiva clear ENT: Ears normal, Nose normal, Oropharynx normal Respiratory: Airway patent, Breath sounds clear, Breath sounds equal, Respirations nonlabored Cardiovascular: RRR, Pulses normal, No rub, No murmur GI/: Soft, Nontender, No masses, Bowel sounds normal, No Organomegaly Musculoskeletal: Normal strength, ROM intact, No edema, No calf tenderness Skin: Warm, Dry, Normal color Neurological: Sensation intact, Motor intact, Reflexes intact, Cranial nerves intact, Alert, Oriented Psychiatric: Affect appropriate, Mood appropriate Interpretation - Radiology Interpretation Radiology Interpretation By: Radiologist Radiology Results: No acute changes Critical Care Note - Critical Care Note Total Time (mins): 0 Course - Course Hematology/Chemistry: 11/23/16 17:50 Orders, Labs, Meds: Lab Review 11/23/16 17:50 WBC 8.51 RBC 5.03 Hgb 14.9 Hct 42.4 MCV 84.3 MCH 29.6 MCHC 35.1 RDW Coeff of [place] 14.2 Plt Count 227 Immature Gran % (Auto) 0.9 Neut % (Auto) 49.2 Lymph % (Auto) 29.0 [place] % (Auto) 8.8 Eos % (Auto) 11.0 H Baso % (Auto) 1.1 Immature Gran # (Auto) 0.1 Neut # 4.2 Lymph # 2.5 Carbon # 0.8 Eos # 0.9 H Baso # 0.1 Orders Category Date Time Status EKG-(ED ONLY) Stat CARDIO 11/23/16 17:44 Completed AMYLASE Stat LAB 11/23/16 17:50 Received CBC W/ AUTO DIFF Stat LAB 11/23/16 17:50 Completed COMPREHENSIVE METABOLIC PANEL Stat LAB 11/23/16 17:50 Received CREATINE KINASE Stat LAB 11/23/16 17:50 Received H. PYLORI SCREEN Stat LAB 11/23/16 17:50 Received LIPASE Stat LAB 11/23/16 17:50 Received TROPONIN I Stat LAB 11/23/16 17:50 Received URINALYSIS C & S IF INDICATED Stat LAB 11/23/16 17:43 Uncollected Mag-Al Plus//Lidocaine [Gi Cocktail] MEDS 11/23/16 17:45 Discontinued 30 ml PO ONCE STA CHEST, 2 VIEWS PA & LAT Stat RADS 11/23/16 17:[address] ABDOMEN/PELVIS WO CONTRAST Stat RADS 11/23/16 17:44 Ordered Medications Discontinued Medications Generic Name Dose Route Start Last Admin Trade Name [place] PRN Reason Stop Dose Admin Al Hydroxide/Mg Hydroxide 30 ml 11/23/16 17:45 11/23/16 17:52 Gi Cocktail PO 11/23/16 17:46 30 ml ONCE STA Administration Vital Signs: Temp Pulse Resp BP Pulse Ox 11/23/16 17:26 97.6 F 75 18 130/75 96 Departure - Departure Time of Disposition: 19:00 Disposition: HOME SELF-CARE Discharge Problem: Abdominal pain Instructions: Abdominal Pain (ED) Condition: Good Pt referred to PMD for follow-up: No Allergies/Adverse Reactions: Allergies ibuprofen Adverse Reaction (Intermediate, Verified 11/23/16 17:26) Vomiting clopidogrel bisulfate [From Plavix] Adverse Reaction (Verified 11/23/16 17:26) codeine Adverse Reaction (Verified 11/23/16 17:26) doxycycline Adverse Reaction (Verified 11/23/16 17:26) levofloxacin [From Levaquin] Adverse Reaction (Verified 11/23/16 17:26) morphine Adverse Reaction (Verified 11/23/16 17:26) Home Medications: Ambulatory Orders Aspirin [Valerie Chewable] 81 mg PO DAILY 01/12/13 Lisinopril [Zestril] 20 mg PO DAILY 01/12/13 Theophylline Anhydrous [Theophylline] 300 mg PO BID 01/12/13 Fenofibrate Nanocrystallized [Fenofibrate] 160 mg PO DAILY 06/08/14 Atorvastatin Calcium [Lipitor] 40 mg PO BEDTIME 07/19/15 Dexlansoprazole [Dexilant] 30 mg PO DAILY 12/02/15 Isosorbide Dinitrate 2 tab PO BID 12/02/15 Cholecalciferol (Vitamin D3) [Vitamin D3] 1,000 units PO DAILY 05/28/16 Prasugrel HCl [Effient] 5 mg PO DAILY 05/28/16 Albuterol Sulfate 0.083% Neb [Albuterol 0.083% Neb] 1 vial NEB RTQ8H 08/05/16 Amlodipine Besylate 2.5 mg PO DAILY 08/05/16 Azithromycin [Zithromax] 250 mg PO DIRECTED #6 tablet 08/05/16 Docusate Sodium [Stool Softener] 100 mg PO PRN PRN 08/05/16 Fluticasone/Salmeterol 250/50 [Advair 250-50 Diskus] 1 puff IH BID 08/05/16 Guaifenesin/Dextromethorphan [Guaifenesin Dm Syrup] 10 ml PO QID PRN #120 syrup 08/05/16 Hydrocodone Bit/Acetaminophen [[place] 10-325] 1 tab PO PRN PRN 08/05/16 Insulin NPL/Insulin Lispro [Humalog Mix 75-25] 4 unit SUBCUT BID 08/05/16 Disposition Discussed With: Patient
[2016-11-23 18:17] LABS: H. PYLORI ANTIBODY NEGATIVE (NEGATIVE); H.PYLORI INTERNAL QC INTERNAL QC VALID
[2016-11-23 18:28] LABS: ALANINE AMINOTRANSFERASE 73 U/L (12-78); ALBUMIN 3.1 g/dL (3.4-5.0); ALBUMIN/GLOBULIN RATIO 0.97; ALKALINE PHOSPHATASE 247 U/L (56-119); AMYLASE 54 U/L (25-115); ANION GAP 13.9; ASPARTATE AMINO TRANSFERASE 42 U/L (15-37); BILIRUBIN,TOTAL 0.54 mg/dL (0.00-1.20); BLOOD UREA NITROGEN 20 mg/dL (7-18); BUN/CREATININE RATIO 24.39; CARBON DIOXIDE 21 mmol/L (23-31); CHLORIDE 106 mmol/L (98-107); CREATINE KINASE 39 U/L; CREATININE 0.82 mg/dL (0.60-1.10); GLUCOSE 140 mg/dL (82-115); LIPASE 68 U/L (8-78); POTASSIUM 3.9 mmol/L (3.5-5.1); SODIUM 137 mmol/L (136-145); TOTAL PROTEIN 6.3 g/dL (5.8-8.1)
[2016-11-23 18:33] LABS: BILIRUBIN,URINE Negative (NEGATIVE); KETONES,URINE Negative (NEGATIVE); LEUKOCYTE ESTERASE ,URINE Negative (NEGATIVE); NITRITE,URINE Negative (NEGATIVE); PROTEIN,URINE 2+ (NEGATIVE); URINE, BLOOD Negative (NEGATIVE)
[2016-11-23 18:41] LABS: ADD URINE MICROSCOPIC YES
[2016-11-23 18:49] LABS: BACTERIA,URINE TRACE (NOT PRESENT)
--- NOTE | 2016-11-23 19:08 | CT ---
EXAM: CT abdomen and pelvis without contrast. HISTORY: Abdominal pain. TECHNIQUE: Multi-slice transaxial helical CT. Coronal and sagittal reformatons were performed. COMPARISON: 07/19/2015 FINDINGS: The heart is borderline enlarged. Pacer leads are present within the right heart. Operative change s of midline sternotomy are partially imaged. Bibasilar dependent atelectasis is present. Left bas ilar pulmonary nodule measures up to 7 mm in size, not significantly changed when accounting for dif ferences in measuring technique since prior exam. Evaluation of the solid organs is limited without IV contrast. Nonobstructing renal calculus in the inferior pole of the left kidney measures up to 10 mm in size. Fat stranding densities surrounding the left kidney does not appear significantly changed since prior exam. Additional bilateral renal vascular calcifications are present. Mild bilateral extrarenal pelvis is seen. No evidence of hyd ronephrosis or obstructing urinary calculus. The spleen is normal in size. The gallbladder has bee n removed. There is no intrahepatic biliary ductal dilation. The pancreas and the bilateral adrenal glands appear grossly unremarkable. The bowel is not dilated. Urinary bladder is not well distended. The prostate is mildly enlarged me asuring up to 4.7 cm in transverse diameter. This appendix is normal in size and contains gas. No evidence of fluid in the abdomen or pelvis is seen. Calcified plaques are present within the abdomi nal aorta. Bilateral fat containing inguinal hernias are present. Tiny fat containing periumbilica l hernia is present. There is moderate multilevel degenerative changes of the lumbar spine. IMPRESSION: 1. No acute abdominal findings. 2. No hydronephrosis or renal calculus. 3. 10 mm nonobstructing left renal calculus. 4. Fat stranding densities surrounding the left kidney is not significantly changed since prior exa m. This may be nonspecific however pyelonephritis is difficult to exclude. Correlate with urinalys is. 5. Prostatic enlargement. 6. Unchanged 7 mm left basilar pulmonary nodule since prior exam. Recommend follow-up CT chest in 1 2 months to demonstrate stability. 7. Multiple other age-related changes as detailed above.
--- NOTE | 2016-11-24 07:37 | DI ---
EXAM: Chest two view, frontal and lateral views. HISTORY: Cough. COMPARISON: 10/25/2016. FINDINGS: Post CABG changes noted. Left-sided pacemaker again seen. Heart size is normal. There is no vascular congestion. No consolidation, pleural effusion or pneumothorax identified. Mild chr onic peribronchial thickening noted. Old left rib fractures noted. Clips seen in the upper abdomen . Since the prior study, there has been no significant interval change. IMPRESSION: No acute process.
== END 2016-11-23 19:00 | disposition home or self-care (01) ==
LOC: ED 17:22
DX: R10.13 Epigastric pain (principal); G89.29 Other chronic pain; I13.0 Hypertensive heart and chronic kidney disease with heart failure and stage 1 through stage 4 chronic kidney disease, or unspecified chronic kidney disease; E11.22 Type 2 diabetes mellitus with diabetic chronic kidney disease; N18.9 Chronic kidney disease, unspecified; I50.9 Heart failure, unspecified; E78.5 Hyperlipidemia, unspecified; I25.810 Atherosclerosis of coronary artery bypass graft(s) without angina pectoris; Z72.0 Tobacco use; Z79.4 Long term (current) use of insulin; Z86.711 Personal history of pulmonary embolism; Z86.73 Personal history of transient ischemic attack (TIA), and cerebral infarction without residual deficits; Z79.899 Other long term (current) drug therapy
CPT/HCPCS: 36415; 80053; 81001; 82150; 82550; 83690; 84484; 85025; 86677; 93005; 93010; 99283

== ENCOUNTER 2016-11-29 11:30 | Outpatient (CLI) ==
--- NOTE | 2016-11-29 11:51 | DI ---
EXAM: Three views of the right ankle HISTORY: Right ankle pain with no injury. COMPARISON: None FINDINGS: There is soft tissue swelling. There is no lytic or blastic lesion. There is no displace d fracture or dislocation. There are surgical clips in the soft tissues. Hind foot structures demo nstrate a plantar heel spur. IMPRESSION: Soft tissue swelling with no acute osseous abnormality.
--- NOTE | 2016-11-29 11:51 | DI ---
EXAM: Views of the right foot HISTORY: Pain TECHNIQUE: AP lateral, oblique views of the right foot were obtained. FINDINGS: No acute fractures are seen. There are no erosions. The joint spaces are normal. The s oft tissues are normal. IMPRESSION: No acute abnormalities are seen within the right foot.
== END 2016-11-29 11:31 | disposition home or self-care (01) ==
LOC: RAD 11:30
PROVIDERS: ATTEND Physician Assistant
DX: M25.571 Pain in right ankle and joints of right foot (principal)

== ENCOUNTER 2016-12-06 06:51 | Outpatient (CLI) ==
--- NOTE | 2016-12-06 12:07 | NM ---
EXAM: Whole body bone scan HISTORY: Right foot and right ankle pain for 6 weeks, no injury COMPARISON: Radiographs of the right foot and right ankle on 11/29/2016 showed soft tissue swelling in the region of the ankle. TECHNIQUE: Anterior and posterior whole body bone scans were obtained following the intravenous admi nistration of 26.1 mCi of technetium 99m HDP, followed by spot views of areas of interest. FINDINGS: There is minimal dextroscoliosis in the mid to distal thoracic region. There has been prev ious median sternotomy. A small focus of mildly increased isotope uptake is identified involving le ft anterior lateral fourth, sixth and seventh ribs which could represent remote fractures. There is a focus of mildly increased isotope uptake involving the right posterior lateral eighth rib most li mitch old fracture. Small focal uptake is present in the posterior-inferior aspect of the left calca neus most likely a spur. No other significant finding. Kidneys and soft tissues are normal. IMPRESSION: 1. Plantar calcaneal spur on the left. 2. Minimal dextroscoliosis thoracic spine. 3. Old rib fractures on the left as well as right as described.
== END 2016-12-06 06:52 | disposition home or self-care (01) ==
LOC: RAD 06:51
PROVIDERS: ATTEND Physician Assistant
DX: M25.579 Pain in unspecified ankle and joints of unspecified foot (principal)

== ENCOUNTER 2016-12-10 22:05 | Emergency (ER) ==
[2016-12-10] MEDS ORDERED: SODIUM CHLORIDE 1,000 ML IV STA (22:13)
[2016-12-10] MEDS ORDERED: NITROSTAT SL STA ×2 (22:14→23:09)
[2016-12-10 22:22] VITALS: BP 192/88; TEMP 97.9; BMI 28.8
[2016-12-10 22:26] LABS: BASOPHILS # (AUTO) 0.1 K/uL (0-0.2); BASOPHILS % (AUTO) 1.3 % (0.0-3.0); EOSINOPHILS % (AUTO) 11.8 % (0.0-7.0); HEMATOCRIT 44.5 % (42.0-52.0); HEMOGLOBIN 15.4 g/dl (14.0-18.0); IMMATURE GRANULOCYTE % (AUTO) 0.9 % (0.0-5.0); LYMPHOCYTES # (AUTO) 2.6 K/uL (0.60-3.4); LYMPHOCYTES % (AUTO) 29.4 (10.0-50.0); MEAN CORPUSCULAR HEMOGLOBIN 29.5 pg (27.0-31.0); MEAN CORPUSCULAR HGB CONC 34.6 (31.8-35.4); MEAN CORPUSCULAR VOLUME 85.2 fl (80.0-94.0); MONOCYTES # (AUTO) 0.7 K/uL (0.4-2.0); MONOCYTES % (AUTO) 8.5 (0-10); NEUTROPHILS # (AUTO) 4.2 K/ul (2.0-6.9); NEUTROPHILS % (AUTO) 48.1; PLATELET COUNT 216 10^3/uL (140-440); RED BLOOD COUNT 5.22 10^6/ul (4.70-6.10); WHITE BLOOD COUNT 8.67 K/ul (4.2-10.2)
--- NOTE | 2016-12-10 22:43 | ED.PDOC ---
General ED Provider: Dr. CAROLYNE GUILLAUME-ER Chief Complaint: Chest Pain Stated Complaint: my chest hurts and my heart doctor is dr juliet downs [facility] Time Seen by Physician: 22:10 Mode of Arrival: Walk-In Information Source: Patient Exam Limitations: No limitations Primary Care Provider: KAPIL LAGUERRE Nursing and Triage Documentation Reviewed and Agree: Yes Cardiovascular Complaint Exam - Chest Pain Complaint/Exam Onset: Gradual Duration: several hours Symptoms Are: Still present Timing: Intermittent Initial Severity: Mild Current Severity: Mild Location: Reports: Diffuse Character: Reports: Dull, Aching, Heaviness, Pressure Aggravating: Reports: None Alleviating: Reports: Nitro Associated Signs and Symptoms: Denies: Diaphoresis, Nausea, Vomiting, Fever, Palpitations, Cough, Hemoptysis, Back pain, Abdominal pain, Dizziness, Short of air, Calf pain, Calf swelling Related History: Reports: Current ARBs Related Surgical History: Reports: Cardiac Cath, PTCA/Stent, CABG History of Healthcare-Acquired Pneumonia: Reports: No AMI/ACS Risk Factors: Reports: Myocardial Infarction, Diabetes, Nitroglycerine use, Hypertension, Smoking, Dyslipidemia TAD Risk Factors: Reports: Hypertension Pulmonary Embolism Risk Factors: Reports: None Prior Care for this Complaint: No Recent Stress Test: No Recent Echo/LV Function: No JVD Present: No Subcutaneous Emphysema Present: No Diminshed Breath Sounds: No Reproducible Chest Wall Pain: No Bilateral Pulses Present: Yes Unequal Pulses Noted: No If Risk Factors for AMI/ACS Consider: EKG, Cardiac Enzymes, Oxygen, Aspirin Differential Diagnoses: Acute OR, ACS, Stable Angina Quality Indicator For Non-Traumatic Chest Pain/Syncope: EKG Performed Review of Systems - Review Of Systems Constitutional: Reports: No symptoms Eyes: Reports: No symptoms Ears, Nose, Mouth, Throat: Reports: No symptoms Respiratory: Reports: No symptoms Cardiac: Reports: Chest pain GI: Reports: No symptoms : Reports: No symptoms Musculoskeletal: Reports: No symptoms Skin: Reports: No symptoms Neurological: Reports: No symptoms Endocrine: Reports: No symptoms Hematologic/Lymphatic: Reports: No symptoms All Other Systems: Reviewed and Negative Past Medical History - Past Medical History Previously Healthy: Yes Endocrine: Reports: DM 2, Dyslipidemia Cardiovascular: Reports: CAD, Hypertension, CHF Respiratory: Reports: COPD, PE (BLOOD CLOT/LUNG) Hematological: Reports: Other Gastrointestinal: Reports: None Genitourinary: Reports: None, CKD Neuro/Psych: Reports: CVA, Migraine, Depression Musculoskeletal: Reports: Arthritis Cancer: Reports: None Other Pertinent Past Medical History: htn dm chl cva chf copd kd 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 - Surgical History General Surgical History: Reports: CABG (5 years ago) - Family History Family History: Reports: Unknown - Social History Smoking Status: Current every day smoker Hx Substance Use: No Alcohol Screening: None Lives: With family - Immunizations Tetanus Shot up to Date: Yes Physical Exam - Physical Exam Appearance: Well-appearing, No pain distress, Well-nourished Eyes: KM, EOMI, Conjunctiva clear ENT: Ears normal, Nose normal, Oropharynx normal Neck: Supple Respiratory: Airway patent Cardiovascular: RRR, Pulses normal, No rub, No murmur GI/: Soft, Nontender, No masses, Bowel sounds normal, No Organomegaly Musculoskeletal: Normal strength, ROM intact, No edema, No calf tenderness Skin: Warm, Dry, Normal color Neurological: Sensation intact, Motor intact, Reflexes intact, Cranial nerves intact, Alert, Oriented Psychiatric: Affect appropriate, Mood appropriate Interpretation - Radiology Interpretation Radiology Interpretation By: ED Physician Radiology Results: Negative Exam Interpreted: Portable CXR - EKG Interpretation Time of EKG #1: 22:44 Rate: Normal Rhythm: Sinus Ectopy: None [place]: NL ST Segment: Normal Re-Evaluation - Re-Evaluation Time of Re-Evaluation: 22:44 Status: Improved Vital Signs Stable: Yes Pain Level: 0 Appearance: NAD Lungs: Clear Skin: Warm and Dry Neuro: Alert and Oriented X3 CV: RRR Physician Notification - Case Discussed Physician Notified: dr hsu Time of Notification: 22:55 Critical Care Note - Critical Care Note Total Time (mins): 15 Course - Course Hematology/Chemistry: 12/10/16 20:20 Orders, Labs, Meds: Lab Review 12/10/16 20:20 WBC 8.67 RBC 5.22 Hgb 15.4 Hct 44.5 MCV 85.2 MCH 29.5 MCHC 34.6 RDW Coeff of [place] 14.1 Plt Count 216 Immature Gran % (Auto) 0.9 Neut % (Auto) 48.1 Lymph % (Auto) 29.4 [place] % (Auto) 8.5 Eos % (Auto) 11.8 H Baso % (Auto) 1.3 Immature Gran # (Auto) 0.1 Neut # 4.2 Lymph # 2.6 [place] # 0.7 Eos # 1.0 H Baso # 0.1 Orders Category Date Time Status EKG-(ED ONLY) Stat CARDIO 12/10/16 22:13 Ordered TRANSFER TO OUTSIDE FACILITY .TO [facility] ( CARE 12/10/16 22:57 Active LUZ VALENZUELA) WRITE TRANSFER/SBAR NOTE ONCE CARE 12/10/16 22:57 Active DISCHARGE ASSESSMENT ONCE DISCHARGE 12/10/16 22:57 Active WRITE DISCHARGE NOTE ONCE DISCHARGE 12/10/16 22:57 Active ED IV/MEDIPORT/POWERPORT .ONCE EMERGENCY 12/10/16 22:13 Active OXYGEN [ED APPLY O2] .ONCE EMERGENCY 12/10/16 22:39 Active AMYLASE Stat LAB 12/10/16 20:20 Received CBC W/ AUTO DIFF Stat LAB 12/10/16 20:20 Completed COMPREHENSIVE METABOLIC PANEL Stat LAB 12/10/16 20:20 Received CREATINE KINASE Stat LAB 12/10/16 20:20 Received LIPASE Stat LAB 12/10/16 20:20 Received TROPONIN I Stat LAB 12/10/16 20:20 Received 0.9 % Sodium Chloride [Saline Flush] MEDS 12/10/16 22:13 Ordered 1 syr IVF PRN PRN Nitroglycerin [Nitrostat] MEDS 12/10/16 22:14 Discontinued 0.4 mg SL ONCE STA Sodium Chloride 0.9% [Sodium Chloride] 1,000 ml MEDS 12/10/16 22:13 Active IV 30 mls/hr CXR [CHEST, 1V AP ONLY] Stat RADS 12/10/16 22:15 Ordered Medications Generic Name Dose Route Start Last Admin Trade Name Freq PRN Reason Stop Dose Admin Sodium Chloride 1,000 mls @ 30 mls/hr 12/10/16 22:13 12/10/16 22:20 Sodium Chloride IV 12/12/16 07:32 30 mls/hr .[id number] STA Administration Sodium Chloride 1 syr 12/10/16 22:13 Saline Flush IVF PRN PRN To flush IV Discontinued Medications Generic Name Dose Route Start Last Admin Trade Name Freq PRN Reason Stop Dose Admin Nitroglycerin 0.4 mg 12/10/16 22:14 12/10/16 22:15 Nitrostat SL 12/10/16 22:15 0.4 mg ONCE STA Administration Vital Signs: Temp Pulse Resp BP Pulse Ox 12/10/16 22:06 97.9 F 73 18 192/88 H 96 JESSICA Risk Score JESSICA Risk Score: Risk Score Odds of by 30D 0 0.1 (0.1-0.2) 1 0.3 (0.2-0.3) 2 0.4 (0.3-0.5) 3 0.7 (0.6-0.9) 4 1.2 (1.0-1.5) 5 2.2 (1.9-2.6) 6 3.0 (2.5-3.6) 7 4.8 (3.8-6.1) Departure - Departure Time of Disposition: 22:55 Disposition: TSF SHORT-TRM HOSP Discharge Problem: Chest pain Instructions: Chest Pain (ED) Condition: Good Pt referred to PMD for follow-up: No Allergies/Adverse Reactions: Allergies ibuprofen Adverse Reaction (Intermediate, Verified 12/10/16 22:10) Vomiting clopidogrel bisulfate [From Plavix] Adverse Reaction (Verified 12/10/16 22:10) codeine Adverse Reaction (Verified 12/10/16 22:10) doxycycline Adverse Reaction (Verified 12/10/16 22:10) levofloxacin [From Levaquin] Adverse Reaction (Verified 12/10/16 22:10) morphine Adverse Reaction (Verified 12/10/16 22:10) Home Medications: Ambulatory Orders Aspirin [Valerie Chewable] 81 mg PO DAILY 01/12/13 Lisinopril [Zestril] 40 mg PO BID 01/12/13 Theophylline Anhydrous [Theophylline] 300 mg PO BID 01/12/13 Fenofibrate Nanocrystallized [Fenofibrate] 160 mg PO DAILY 06/08/14 Atorvastatin Calcium [Lipitor] 40 mg PO BEDTIME 07/19/15 Dexlansoprazole [Dexilant] 30 mg PO DAILY 12/02/15 Isosorbide Dinitrate 80 mg PO BID 12/02/15 Cholecalciferol (Vitamin D3) [Vitamin D3] 1,000 units PO DAILY 05/28/16 Prasugrel HCl [Effient] 5 mg PO DAILY 05/28/16 Albuterol Sulfate 0.083% Neb [Albuterol 0.083% Neb] 1 vial NEB RTQ8H PRN Docusate Sodium [Stool Softener] 100 mg PO PRN PRN 08/05/16 Fluticasone/Salmeterol 250/50 [Advair 250-50 Diskus] 1 puff IH BID 08/05/16 Furosemide [Lasix] 20 mg PO DAILY 12/10/16 Glipizide 2.5 mg PO BIDAC 12/10/16 Hydrocodone/Acetaminophen [[place] 7.5-325 Tablet] 7.5 - 325 mg PO Q6H PRN Insulin NPL/Insulin Lispro [Humalog Mix 75-25] 1 unit SQ DIRECTED 12/10/16 Transfer Form Completed: Yes Disposition Discussed With: Patient
[2016-12-10 23:01] LABS: ALBUMIN 3.2 g/dL (3.4-5.0); ALBUMIN/GLOBULIN RATIO 0.91; ANION GAP 13.7; BILIRUBIN,TOTAL 0.48 mg/dL (0.00-1.20); BUN/CREATININE RATIO 16.8; CREATININE 1.19 mg/dL (0.60-1.10); POTASSIUM 3.7 mmol/L (3.5-5.1); TOTAL PROTEIN 6.7 g/dL (5.8-8.1); TROPONIN I 0.024 ng/ml (0.0000-0.4000)
[2016-12-10 23:02] LABS: CREATINE KINASE MB 1.4 ng/ml (0.0-3.6)
--- NOTE | 2016-12-11 05:56 | DI ---
EXAM: Chest one view HISTORY: Chest pain COMPARISON: 11/23/2016 TECHNIQUE: Single view of the chest was performed FINDINGS: Left-sided cardiac pacer. The lungs are clear. There is no pleural effusion or pneumoth orax. The heart is borderline enlarged in size in may be essentially by technique.. The mediastina l contour is normal, noting atherosclerosis. Median sternotomy wires. There are no acute abnormali ties of the bones. IMPRESSION: No acute cardiopulmonary process.
== END 2016-12-11 00:10 | disposition short-term general hospital (02) ==
LOC: ED 22:05
DX: R07.9 Chest pain, unspecified (principal); E11.9 Type 2 diabetes mellitus without complications; I10 Essential (primary) hypertension; E78.5 Hyperlipidemia, unspecified; I25.810 Atherosclerosis of coronary artery bypass graft(s) without angina pectoris; N18.9 Chronic kidney disease, unspecified; I50.9 Heart failure, unspecified; J44.9 Chronic obstructive pulmonary disease, unspecified; F17.210 Nicotine dependence, cigarettes, uncomplicated; I25.2 Old myocardial infarction; Z95.5 Presence of coronary angioplasty implant and graft; Z95.1 Presence of aortocoronary bypass graft; Z86.73 Personal history of transient ischemic attack (TIA), and cerebral infarction without residual deficits; Z86.711 Personal history of pulmonary embolism; Z86.69 Personal history of other diseases of the nervous system and sense organs; Z79.899 Other long term (current) drug therapy
CPT/HCPCS: 36415; 80053; 82150; 82550; 82553; 83690; 84484; 85025; 93005; 93010; 96360; 99285

== ENCOUNTER 2017-01-19 10:32 | Outpatient (CLI) ==
--- NOTE | 2017-01-19 12:06 | DI ---
Exam: Two x-rays of the chest. Comparison: 12/10/2016. Reason for exam: Acute sinusitis. FINDINGS: Operative changes are seen after midline sternotomy and implanted intracardiac device hernandez cement. No pneumothorax, pleural effusion, or focal consolidation. There are several similar appearing frac tured inferior sternotomy wires. Degenerative disease is seen in the thoracic spine. Impression: No acute cardiopulmonary process.
== END 2017-01-19 10:33 | disposition home or self-care (01) ==
LOC: RAD 10:32
PROVIDERS: ATTEND Physician Assistant
DX: J01.10 Acute frontal sinusitis, unspecified (principal)

== ENCOUNTER 2017-01-31 09:17 | Outpatient (CLI) ==
[2017-01-31 10:31] LABS: ALBUMIN 3.3 g/dL (3.4-5.0); ALBUMIN/GLOBULIN RATIO 0.94; ANION GAP 11.1; BILIRUBIN,TOTAL 0.57 mg/dL (0.00-1.20); BUN/CREATININE RATIO 28.03; CALCIUM 11.9 mg/dL (8.2-10.2); CREATININE 1.32 mg/dL (0.60-1.10); POTASSIUM 4.1 mmol/L (3.5-5.1); TOTAL PROTEIN 6.8 g/dL (5.8-8.1)
== END 2017-01-31 09:18 | disposition home or self-care (01) ==
LOC: LAB 09:17
PROVIDERS: ATTEND Internal Medicine Endocrinology, Diabetes & Metabolism
DX: E11.65 Type 2 diabetes mellitus with hyperglycemia (principal); E83.52 Hypercalcemia
CPT/HCPCS: 36415; 80053; 82306; 83036; 83970

== ENCOUNTER 2017-02-08 16:34 | Inpatient (IN) ==
[2017-02-08 16:53] VITALS: BMI 29.0
[2017-02-08 17:14] LABS: BASOPHILS # (AUTO) 0.1 K/uL (0-0.2); BASOPHILS % (AUTO) 1.5 % (0.0-3.0); EOSINOPHILS # (AUTO) 0.9 K/ul (0.0-0.7); EOSINOPHILS % (AUTO) 10.8 % (0.0-7.0); HEMATOCRIT 41.9 % (42.0-52.0); HEMOGLOBIN 14.8 g/dl (14.0-18.0); LYMPHOCYTES # (AUTO) 2.6 K/uL (0.60-3.4); LYMPHOCYTES % (AUTO) 32.5 (10.0-50.0); MEAN CORPUSCULAR HGB CONC 35.3 (31.8-35.4); MONOCYTES # (AUTO) 0.7 K/uL (0.4-2.0); MONOCYTES % (AUTO) 8.3 (0-10); NEUTROPHILS # (AUTO) 3.7 K/ul (2.0-6.9); NEUTROPHILS % (AUTO) 45.9; PLATELET COUNT 217 10^3/uL (140-440); RED BLOOD COUNT 4.93 10^6/ul (4.70-6.10); WHITE BLOOD COUNT 7.99 K/ul (4.2-10.2)
[2017-02-08 17:30] LABS: ALBUMIN 3.3 g/dL (3.4-5.0); ALBUMIN/GLOBULIN RATIO 1.06; ANION GAP 11.1; BILIRUBIN,TOTAL 0.28 mg/dL (0.00-1.20); BUN/CREATININE RATIO 30.69; CALCIUM 11.2 mg/dL (8.2-10.2); CREATININE 1.01 mg/dL (0.60-1.10); POTASSIUM 4.1 mmol/L (3.5-5.1); TOTAL PROTEIN 6.4 g/dL (5.8-8.1)
--- NOTE | 2017-02-08 17:34 | CT ---
EXAM: CT of the chest without contrast. HISTORY: Cough. PROCEDURE: Contiguous axial CT images of the chest without contrast with coronal and sagittal reform ats. FINDINGS: Comparison made with CT of 05/28/2016. The heart is within normal limits in size. The thor acic aorta is within normal limits in diameter. There are atherosclerotic calcifications in the thor acic aorta. There are coronary artery calcifications. There is minimal bibasilar dependent atelecta sis. There is a 0.3 cm nodule in the lingula. There are two nodules in the left lower lobe measurin g up to 0.8 cm. There is a two lead pacemaker. There are multiple sternotomy wires. There are degen erative changes in the spine. There is a right thoracotomy defect. The adrenal glands and visualized portion of the liver are normal in appearance. Impression: Left lung nodules measuring up to 0.8 cm as described. Recommend follow-up CT in 6 derrell hs to confirm stability. Minimal bibasilar dependent atelectasis. Atherosclerotic vascular disease.
--- NOTE | 2017-02-08 17:53 | ED.PDOC ---
General ED Provider: Dr. NOVA NIEVES Chief Complaint: Abnormal Labs Stated Complaint: abnormal calcium level Time Seen by Physician: 16:40 (he was contacted by his geodetic surveyor technologist and was in formed that his calcium level is high) Mode of Arrival: Walk-In Information Source: Patient Exam Limitations: No limitations Primary Care Provider: KAPIL LAGUERRE Nursing and Triage Documentation Reviewed and Agree: Yes Respiratory Complaint Exam - Respiratory Complaint/Exam Onset/Duration: unknown Symptoms Are: Resolved Timing: Constant Initial Severity: Mild Current Severity: Mild Character: Reports: Dry cough Aggravating: Reports: None Alleviating: Reports: None Associated Signs and Symptoms: Denies: Rapid breathing, Dyspnea, Fever, Chills, Chest pain, Pleuritic chest pain, Wheezing, Hemoptysis, Dizziness, Calf pain, Calf swelling, Edema, URI, Nasal congestion, Hoarseness, Sinus discomfort, Vomiting, Sore throat, Weight loss, Decreased oral intake, Increased thirst, Increased appetite, Increased urination History of Healthcare-Acquired Pneumonia: No Related Surgical History: Reports: None Pulmonary Embolism Risk Factors: None Cardiac Risk Factors: Reports: Diabetes, Hypertension Pseudomonas Risk Factors: Reports: Chronic Lung Disease (copd) Tuberculosis Risk Factors: Reports: None Status Asthmaticus Risk Factors: Reports: None Home Oxygen Use: No Recent Stress Test: No Recent Echo/LV Function: No Current Antibiotic Use: No Current Asthma Medication Use: No Respiratory Distress: None Inadequate Respiratory Effort: No Dysphagia Present: No Stridor Present: No JVD Present: No Accessory Muscle Use: No Diminished Breath Sounds: Yes Sinus Tenderness: None Grunting Respirations: No Kussmaul Respirations: No Differential Diagnoses: Pneumonia, Bronchitis (lung cancer ) Review of Systems - Review Of Systems Constitutional: Reports: No symptoms Eyes: Reports: No symptoms Ears, Nose, Mouth, Throat: Reports: No symptoms Respiratory: Reports: Cough Cardiac: Reports: No symptoms GI: Reports: No symptoms : Reports: No symptoms Musculoskeletal: Reports: No symptoms Skin: Reports: No symptoms Neurological: Reports: No symptoms Endocrine: Reports: No symptoms Hematologic/Lymphatic: Reports: No symptoms All Other Systems: Reviewed and Negative Past Medical History - Past Medical History Previously Healthy: Yes Endocrine: Reports: DM 2, Dyslipidemia Cardiovascular: Reports: CAD, Hypertension, CHF Respiratory: Reports: COPD, PE (BLOOD CLOT/LUNG) Hematological: Reports: Other Gastrointestinal: Reports: None Genitourinary: Reports: None, CKD Neuro/Psych: Reports: CVA, Migraine, Depression Musculoskeletal: Reports: Arthritis Cancer: Reports: None Other Pertinent Past Medical History: htn dm chl cva chf copd kd 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 - Surgical History General Surgical History: Reports: CABG (5 years ago) - Family History Family History: Reports: Unknown - Social History Smoking Status: Current every day smoker, Light tobacco smoker Hx Substance Use: No Alcohol Screening: None Physical Exam - Physical Exam Appearance: Ill-appearing Eyes: KM, EOMI, Conjunctiva clear ENT: Ears normal, Nose normal, Oropharynx normal Respiratory: Rhonchi, Wheezes Cardiovascular: RRR, Pulses normal, No rub, No murmur GI/: Soft, Nontender, No masses, Bowel sounds normal, No Organomegaly Musculoskeletal: Normal strength, ROM intact, No edema, No calf tenderness Skin: Warm, Dry, Normal color Neurological: Sensation intact, Motor intact, Reflexes intact, Cranial nerves intact, Alert, Oriented Psychiatric: Affect appropriate, Mood appropriate Interpretation - Radiology Interpretation Radiology Interpretation By: Radiologist Radiology Results: Positive (pulmonary nodule 0.8 cm) - Mangle Tender Cloth Rate: Normal Rhythm: Sinus Ectopy: None - EKG Interpretation Rate: Normal Rhythm: Sinus Ectopy: None [place]: NL ST Segment: Normal Physician Notification - Case Discussed Physician Notified: joseph Time of Notification: 17:55 Critical Care Note - Critical Care Note Total Time (mins): 0 Course - Course Hematology/Chemistry: 02/08/17 17:10 02/08/17 17:10 Orders, Labs, Meds: Lab Review 02/08/17 02/08/17 17:10 17:10 WBC 7.99 RBC 4.93 Hgb 14.8 Hct 41.9 L MCV 85.0 MCH 30.0 MCHC 35.3 RDW Coeff of [place] 14.5 Plt Count 217 Immature Gran % (Auto) 1.0 Neut % (Auto) 45.9 Lymph % (Auto) 32.5 [place] % (Auto) 8.3 Eos % (Auto) 10.8 H Baso % (Auto) 1.5 Immature Gran # (Auto) 0.1 Neut # 3.7 Lymph # 2.6 [place] # 0.7 Eos # 0.9 H Baso # 0.1 Sodium 138 Potassium 4.1 Chloride 109 H Carbon Dioxide 22 L Anion Gap 11.1 BUN 31 H Creatinine 1.01 Estimated GFR (MDRD) 74.00 BUN/Creatinine Ratio 30.69 Glucose 122 H Calcium 11.2 H Total Bilirubin 0.28 AST 18 ALT 19 Alkaline Phosphatase 70 Total Protein 6.4 Albumin 3.3 L Globulin 3.1 Albumin/Globulin Ratio 1.06 Orders Category Date Time Status EKG-(ED ONLY) Stat CARDIO 02/08/17 16:53 Ordered CBC W/ AUTO DIFF Stat LAB 02/08/17 16:51 Ordered COMPREHENSIVE METABOLIC PANEL Stat LAB 02/08/17 16:[address] CHEST W/O CONTRAST Stat RADS 02/08/17 16:52 Ordered Vital Signs: Temp Pulse Resp BP Pulse Ox 02/08/17 16:34 98.4 F 75 20 164/69 H 96 Departure - Departure Time of Disposition: 17:56 Disposition: HOME SELF-CARE Discharge Problem: Hypercalcemia, Pulmonary nodule Instructions: Pulmonary Nodules (ED) Condition: Good Pt referred to PMD for follow-up: Yes Additional Instructions: Please call your Family Physician as soon as possible to schedule a follow-up appointment. Allergies/Adverse Reactions: Allergies ibuprofen Adverse Reaction (Intermediate, Verified 02/08/17 16:43) Vomiting clopidogrel bisulfate [From Plavix] Adverse Reaction (Verified 02/08/17 16:43) codeine Adverse Reaction (Verified 02/08/17 16:43) doxycycline Adverse Reaction (Verified 02/08/17 16:43) levofloxacin [From Levaquin] Adverse Reaction (Verified 02/08/17 16:43) morphine Adverse Reaction (Verified 02/08/17 16:43) Home Medications: Ambulatory Orders Aspirin [Valerie Chewable] 81 mg PO DAILY 01/12/13 Lisinopril [Zestril] 40 mg PO BID 01/12/13 Theophylline Anhydrous [Theophylline] 300 mg PO BID 01/12/13 Fenofibrate Nanocrystallized [Fenofibrate] 160 mg PO DAILY 06/08/14 Atorvastatin Calcium [Lipitor] 40 mg PO BEDTIME 07/19/15 Dexlansoprazole [Dexilant] 30 mg PO DAILY 12/02/15 Isosorbide Dinitrate 80 mg PO BID 12/02/15 Cholecalciferol (Vitamin D3) [Vitamin D3] 1,000 units PO DAILY 05/28/16 Prasugrel HCl [Effient] 5 mg PO DAILY 05/28/16 Albuterol Sulfate 0.083% Neb [Albuterol 0.083% Neb] 1 vial NEB RTQ8H PRN Docusate Sodium [Stool Softener] 100 mg PO PRN PRN 08/05/16 Furosemide [Lasix] 20 mg PO DAILY 12/10/16 Glipizide 2.5 mg PO BIDAC 12/10/16 Hydrocodone/Acetaminophen [[place] 7.5-325 Tablet] 7.5 - 325 mg PO Q6H PRN Insulin NPL/Insulin Lispro [Humalog Mix 75-25] 1 unit SQ DIRECTED 12/10/16 Ipratropium/Albuterol Sulfate [Combivent Respimat Inhal [place]] 1 spray IH DIRECTED PRN 02/08/17 Disposition Discussed With: Patient
[2017-02-08] MEDS ORDERED: SOLU-MEDROL 125 MG IVP STA (17:58)
[2017-02-08] MEDS ORDERED: SODIUM CHLORIDE 1,500 ML IV SCH (18:00)
[2017-02-08] MEDS ORDERED: NON-FORMULARY MEDICATION (Docusate Sodium [Stool Softener] 100 MG) PO PRN ×22 (18:02)
[2017-02-08] MEDS ORDERED: NORCO 7.5-325 PO PRN (18:02)
[2017-02-08] MEDS ORDERED: ZESTRIL ONE ×3 (19:54→19:58)
[2017-02-08] MEDS ORDERED: SORBITRATE ONE ×2 (19:55→19:58)
[2017-02-08] MEDS ORDERED: LIPITOR ONE ×2 (19:55→19:58)
[2017-02-08] MEDS ORDERED: THEO-DUR ONE (19:58)
[2017-02-08] MEDS ORDERED: GLUCOTROL XL PO ONE ×2 (20:51→20:53)
[2017-02-08] MEDS ORDERED: GLUCOTROL PO ONE (20:53)
[2017-02-08] MEDS: GLUCOTROL PO SCH (20:54)
[2017-02-08] MEDS ORDERED: LIPITOR PO SCH (21:00)
[2017-02-08] MEDS ORDERED: LISINOPRIL 40 MG PO SCH ×21 (21:00)
[2017-02-08] MEDS ORDERED: ISOSORBIDE DINITRATE PO SCH (21:00)
[2017-02-08] MEDS ORDERED: ISOSORBIDE DINITRATE 40 MG PO SCH (21:00)
[2017-02-08] MEDS ORDERED: THEOPHYLLINE ANHYDROUS 300 MG PO SCH ×22 (21:00)
[2017-02-08] MEDS: DUONEB NEB SCH (23:25)
[2017-02-09 05:23] LABS: BASOPHILS # (AUTO) 0.1 K/uL (0-0.2); BASOPHILS % (AUTO) 0.6 % (0.0-3.0); HEMATOCRIT 43.2 % (42.0-52.0); IMMATURE GRANULOCYTE % (AUTO) 1.6 % (0.0-5.0); LYMPHOCYTES # (AUTO) 1.2 K/uL (0.60-3.4); LYMPHOCYTES % (AUTO) 13.9 (10.0-50.0); MEAN CORPUSCULAR HEMOGLOBIN 29.4 pg (27.0-31.0); MEAN CORPUSCULAR HGB CONC 34.7 (31.8-35.4); MEAN CORPUSCULAR VOLUME 84.5 fl (80.0-94.0); MONOCYTES # (AUTO) 0.1 K/uL (0.4-2.0); MONOCYTES % (AUTO) 0.8 (0-10); NEUTROPHILS # (AUTO) 7.3 K/ul (2.0-6.9); NEUTROPHILS % (AUTO) 83.1; PLATELET COUNT 225 10^3/uL (140-440); RED BLOOD COUNT 5.11 10^6/ul (4.70-6.10)
[2017-02-09] MEDS: DUONEB NEB SCH ×4 (05:25→22:37)
[2017-02-09] MEDS: GLUCOTROL PO SCH ×2 (05:41→16:58)
[2017-02-09 05:53] LABS: ALBUMIN 3.2 g/dL (3.4-5.0); ANION GAP 14.3; BILIRUBIN,TOTAL 0.41 mg/dL (0.00-1.20); BUN/CREATININE RATIO 31.13; CALCIUM 11.1 mg/dL (8.2-10.2); CREATININE 1.06 mg/dL (0.60-1.10); POTASSIUM 4.3 mmol/L (3.5-5.1); TOTAL PROTEIN 6.4 g/dL (5.8-8.1)
[2017-02-09] MEDS ORDERED: GLUCOTROL XL PO SCH (08:00)
[2017-02-09] MEDS ORDERED: FENOFIBRATE NANOCRYSTALLIZED 160 MG PO SCH (09:00)
[2017-02-09] MEDS ORDERED: NON-FORMULARY MEDICATION (Dexlansoprazole [Dexilant] 30 MG) PO SCH (09:00)
[2017-02-09] MEDS ORDERED: ASPIRIN CHEWABLE PO SCH (09:00)
[2017-02-09] MEDS: PROTONIX PO SCH (09:19)
[2017-02-09] MEDS: LASIX TAB PO SCH (09:19)
[2017-02-09] MEDS: ASPIRIN CHEWABLE PO SCH (09:19)
[2017-02-09] MEDS: SORBITRATE PO SCH ×2 (09:19→21:52)
[2017-02-09] MEDS: THEO-DUR PO SCH ×2 (09:20→21:52)
[2017-02-09] MEDS: ZESTRIL PO SCH ×2 (09:20→21:52)
[2017-02-09] MEDS: TRIGLIDE PO SCH (09:20)
[2017-02-09] MEDS: PRASUGREL HCL 5 MG PO SCH (09:21)
[2017-02-09] MEDS ORDERED: COMBIVENT RESPIMAT INHAL SPRAY IH PRN (10:28)
--- NOTE | 2017-02-09 14:55 | HP ---
DATE OF SERVICE: 02/08/17 CHIEF COMPLAINT: I went to my kidney doctor and he told me that my calcium was high and I came to the emergency room. HISTORY OF PRESENT ILLNESS: This is a 66-year-old male with a history of coronary artery disease, bypass surgery, permanent pacemaker. He went to see Dr. Cornelius today. Outpatient labs were done which showed calcium was 11.9. At that time, Dr. Cornelius called the patient and informed that his calcium is high and was told to come to Emergency Room and the patient came to the ER for hypercalcemia and eventually admitted to the hospital for acute hypercalcemia and management for hypercalcemia. The patient's results from previous labs did show kidney function was 37 and 1.32. REVIEW OF SYSTEMS: CONSTITUTIONAL: Weakness, tiredness. No fever, no chills. HEENT: Normal. ENDOCRINE: No weight gain; no weight loss. CVS: No chest pain. No PND, no orthopnea. Shortness of breath with exertion which is normal for the patient. No PND, no orthopnea. RESPIRATORY: No cough, no congestion. No hemoptysis. GI: No nausea, no vomiting. No abdominal pain. No melena. : No hematuria. No polyuria. MUSCULOSKELETAL: No joint swelling. PSYCHIATRIC: Not anxious. No depression. No suicidal thoughts. No homicidal thoughts. SKIN: Intact, no open lesions. PAST MEDICAL HISTORY: 1. Hypertension 2. Dyslipidemia 3. CAD status post stent and bypass surgery 4. Emphysema 5. COPD 6. Diabetes 7. Hypertension 8. Sickle Cell Diseae 9. Depression/anxiety 10. History of Lyme disease 11. Chronic kidney disease PAST SURGICAL HISTORY: 1. Bypass surgery 2. Hernia repair 3. Cholecystectomy 4. Permanent pacemaker PERSONAL HISTORY: The patient does smoke. No alcohol. No drug use. . FAMILY HISTORY: Significant for diabetes and heart problems. MEDICATIONS: (HOME) 1. Docusate Sodium 2. Fenofibrate 3. Isosorbide 4. Lisinopril 5. Effient 6. Dexilant 7. B[place] 8. Duoneb 9. Albuterol 10. Atrovent 11. Atorvastatin 12. Lasix 13. Aspirin 14. Glipizide 15. Theophylline ALLERGIES: IBUPROFEN, PLAVIX, CODEINE, DOXYCYCLINE PHYSICAL EXAMINATION: V/S: BP 192/88, respiratory rate 80, heart rate 73, temperature 97.9. HEENT: Atraumatic, normocephalic. No scleral icterus. Pallor positive. Mucosa dry. NECK: Supple. No JVD, no bruit. No lymphadenopathy. No thyromegaly. HEART: S1, S2 normal. No murmur. No cyanosis or clubbing. No ascites. LUNGS: Decreased entry with basilar crackles. No rales or rhonchi. ABDOMEN: Soft, nontender. Bowel sounds are active. No CVA tenderness. No rigidity or guarding. EXTREMITIES: No cyanosis, clubbing or pedal edema. No tetany seen, no contractures of the hands are seen. MUSCULOSKELETAL: Normal joints, no swelling. NEUROLOGIC: The patient is awake, alert and oriented. SKIN: Intact; no open lesions. LYMPHATIC: No lymph nodes palpable. LABS: White count 7.99, hemoglobin 14.8, hematocrit 41.9, platelet count 217. Sodium 113, potassium 4.1, chloride 109, bicarb 22, BUN 31, creatinine 1.01, glucose 122, calcium 11.76. ASSESSMENT: 1. HYPERCALCEMIA 2. UNCONTROLLED HYPERTENSION 3. HISTORY OF CORONARY ARTERY DISEASE 4. BYPASS SURGERY 5. DIABETES 6. DEPRESSION PLAN: 1. Will get Theophylline level 2. Admit to regular floor 3. CBC, CMP daily 4. Accu-Cheks with coverage 5. BPH level 6. IV fluids, NS, 40 mL/hr 7. Continue the rest of the home medications 8. I will follow the patient in daily rounds TIME SPENT: MORE THAN 70 minutes FADUMO
[2017-02-09] MEDS: SODIUM CHLORIDE 1,500 ML IV SCH (18:37)
[2017-02-09] MEDS: LIPITOR PO SCH (21:51)
[2017-02-09] MEDS ORDERED: COLACE ONE (21:57)
[2017-02-10] MEDS: DUONEB NEB SCH ×4 (04:48→22:33)
[2017-02-10 05:29] LABS: ANION GAP 12.6; BILIRUBIN,TOTAL 0.29 mg/dL (0.00-1.20); BUN/CREATININE RATIO 26.81; CALCIUM 11.4 mg/dL (8.2-10.2); CREATININE 1.38 mg/dL (0.60-1.10); POTASSIUM 3.6 mmol/L (3.5-5.1)
[2017-02-10] MEDS: LASIX TAB PO SCH (05:58)
[2017-02-10] MEDS: PROTONIX PO SCH (05:58)
[2017-02-10] MEDS: GLUCOTROL PO SCH ×2 (05:59→16:29)
[2017-02-10 06:00] LABS: BASOPHILS # (AUTO) 0.1 K/uL (0-0.2); BASOPHILS % (AUTO) 0.6 % (0.0-3.0); EOSINOPHILS # (AUTO) 0.3 K/ul (0.0-0.7); EOSINOPHILS % (AUTO) 2.3 % (0.0-7.0); HEMATOCRIT 39.6 % (42.0-52.0); HEMOGLOBIN 13.9 g/dl (14.0-18.0); IMMATURE GRANULOCYTE % (AUTO) 0.9 % (0.0-5.0); LYMPHOCYTES # (AUTO) 2.8 K/uL (0.60-3.4); LYMPHOCYTES % (AUTO) 25.8 (10.0-50.0); MEAN CORPUSCULAR HEMOGLOBIN 29.9 pg (27.0-31.0); MEAN CORPUSCULAR HGB CONC 35.1 (31.8-35.4); MEAN CORPUSCULAR VOLUME 85.2 fl (80.0-94.0); MONOCYTES % (AUTO) 9.6 (0-10); NEUTROPHILS # (AUTO) 6.6 K/ul (2.0-6.9); NEUTROPHILS % (AUTO) 60.8; PLATELET COUNT 223 10^3/uL (140-440); RED BLOOD COUNT 4.65 10^6/ul (4.70-6.10); WHITE BLOOD COUNT 10.86 K/ul (4.2-10.2)
[2017-02-10] MEDS: ASPIRIN CHEWABLE PO SCH (09:27)
[2017-02-10] MEDS: SORBITRATE PO SCH ×2 (09:27→20:58)
[2017-02-10] MEDS: THEO-DUR PO SCH ×2 (09:28→10:15)
[2017-02-10] MEDS: PRASUGREL HCL 5 MG PO SCH (09:28)
[2017-02-10] MEDS: ZESTRIL PO SCH ×2 (09:28→20:58)
[2017-02-10] MEDS: TRIGLIDE PO SCH (09:28)
[2017-02-10] MEDS: LIPITOR PO SCH (20:58)
[2017-02-10] MEDS ORDERED: COLACE ONE (21:03)
[2017-02-10] MEDS: SODIUM CHLORIDE 1,500 ML IV SCH ×2 (23:26)
[2017-02-11] MEDS: DUONEB NEB SCH ×2 (04:43→10:11)
[2017-02-11] MEDS: LASIX TAB PO SCH (05:56)
[2017-02-11] MEDS: PROTONIX PO SCH (05:56)
[2017-02-11] MEDS: GLUCOTROL PO SCH (05:56)
[2017-02-11 06:32] LABS: BASOPHILS # (AUTO) 0.1 K/uL (0-0.2); BASOPHILS % (AUTO) 1.8 % (0.0-3.0); EOSINOPHILS # (AUTO) 0.7 K/ul (0.0-0.7); EOSINOPHILS % (AUTO) 9.3 % (0.0-7.0); HEMATOCRIT 43.1 % (42.0-52.0); HEMOGLOBIN 14.9 g/dl (14.0-18.0); IMMATURE GRANULOCYTE % (AUTO) 1.8 % (0.0-5.0); LYMPHOCYTES % (AUTO) 40.9 (10.0-50.0); MEAN CORPUSCULAR HEMOGLOBIN 29.4 pg (27.0-31.0); MEAN CORPUSCULAR HGB CONC 34.6 (31.8-35.4); MEAN CORPUSCULAR VOLUME 85.2 fl (80.0-94.0); MONOCYTES # (AUTO) 0.7 K/uL (0.4-2.0); MONOCYTES % (AUTO) 8.9 (0-10); NEUTROPHILS # (AUTO) 2.8 K/ul (2.0-6.9); NEUTROPHILS % (AUTO) 37.3; PLATELET COUNT 233 10^3/uL (140-440); RED BLOOD COUNT 5.06 10^6/ul (4.70-6.10); WHITE BLOOD COUNT 7.34 K/ul (4.2-10.2)
[2017-02-11 06:43] LABS: ALBUMIN 3.4 g/dL (3.4-5.0); ALBUMIN/GLOBULIN RATIO 1.1; ANION GAP 13.1; BILIRUBIN,TOTAL 0.55 mg/dL (0.00-1.20); BUN/CREATININE RATIO 27.77; CREATININE 1.08 mg/dL (0.60-1.10); POTASSIUM 4.1 mmol/L (3.5-5.1); TOTAL PROTEIN 6.5 g/dL (5.8-8.1)
[2017-02-11] MEDS: THEO-DUR PO SCH (10:00)
[2017-02-11] MEDS: SORBITRATE PO SCH (10:00)
[2017-02-11] MEDS: ASPIRIN CHEWABLE PO SCH (10:01)
[2017-02-11] MEDS: TRIGLIDE PO SCH (10:01)
[2017-02-11] MEDS: ZESTRIL PO SCH (10:02)
[2017-02-11] MEDS: PRASUGREL HCL 5 MG PO SCH (10:02)
[2017-02-11 10:31] VITALS: BP 150/73; TEMP 97
--- NOTE | 2017-02-17 15:20 | PN ---
DATE OF SERVICE: 02/09/17 SUBJECTIVE: The patient was admitted with the hypercalcemia. The patient has been active and walking and did not have any problems today. REVIEW OF SYSTEMS: CONSTITUTIONAL: No fever, no chills. HEENT: Normal. ENDOCRINE: No weight gain, no weight loss. CVS: No angina symptoms. No CHF symptoms. No palpitations. No atypical chest pain for CAD. No shortness of breath. No PND, no orthopnea. RESPIRATORY: No cough, no hemoptysis. GI: No nausea, no vomiting. No abdominal pain. : No hematuria. No polyuria. MUSCULOSKELETAL:. No joint swelling. PSYCHIATRIC: Not anxious. No depression. No suicidal thoughts. No homicidal thoughts. SKIN: Intact. No rash. PHYSICAL EXAMINATION: V/S: blood pressure 139/65, respiratory rate 20, heart rate 74, temperature 97.7 with saturation 96%. HEENT: Normocephalic, atraumatic. Mucosa dry. NECK: Supple. No JVD, no carotid bruit. No lymphadenopathy. LUNGS: Decreased and clear to auscultation. No rales or rhonchi. HEART: S1, S2 normal. No S3. No murmur, gallop or regurgitation. ABDOMEN: Soft, nontender. Bowel sounds active. No rigidity. No rebound or guarding. No CVA tenderness. EXTREMITIES: No clubbing, cyanosis or pedal edema. MUSCULOSKELETAL: No joint swelling. NEUROLOGIC: Awake, alert, oriented times three. No focal deficit. LYMPHATIC: No lymph nodes palpable. SKIN: Intact. LABS: WBC 8.80, hgb 15.0, hct 43.2, plt count 225, sodium 133, potassium 4.3, chloride 104, bicarb 19, BUN 33, creatinine 1.06, glucose 128, calcium 11.1 ASSESSMENT: 1. Hypercalcemia with mildly elevated PTH level 2. History of coronary artery disease 3. Bypass surgery 4. Permanent pacemaker 5. Osteoarthritis 6. DJD spine 7. Diabetes 8. COPD 9. Continued Nicotine PLAN: 1. Continue to given IV fluids and Lasix 2. Will decrease the Theophylline to once a day 3. Will order the Theophylline levels TIME SPENT: More than 35 minutes MTDD
--- NOTE | 2017-02-17 15:30 | PN ---
DATE OF SERVICE: 02/10/17 SUBJECTIVE: The patient was admitted with the hypercalcemia and the patient has a chronic kidney disease, seen by Dr. Cornelius. The patient is being suggested for the evaluation in the hospital by and patient came here. The patient's potassium level is up and down. Today is 11.4. The patient is asymptomatic and mobile. REVIEW OF SYSTEMS: CONSTITUTIONAL: No fever, no chills. HEENT: Normal. ENDOCRINE: No weight gain, no weight loss. CVS: No angina symptoms. No CHF symptoms. No palpitations. No atypical chest pain for CAD. No shortness of breath. No PND, no orthopnea. RESPIRATORY: No cough, no hemoptysis. GI: No nausea, no vomiting. No abdominal pain. : No hematuria. No polyuria. MUSCULOSKELETAL:. No joint swelling. PSYCHIATRIC: Not anxious. No depression. No suicidal thoughts. No homicidal thoughts. SKIN: Intact. No rash. PHYSICAL EXAMINATION: V/S: Blood pressure 114/58, respiratory rate 18, heart rate 68, temperature 97.7 with saturation 96%. HEENT: Normocephalic, atraumatic. Mucosa dry. NECK: Supple. No JVD, no carotid bruit. No lymphadenopathy. LUNGS: Decreased and basilar crackles. No rales or rhonchi. HEART: S1, S2 normal. No S3. No murmur, gallop or regurgitation. ABDOMEN: Soft, nontender. Bowel sounds active. No rigidity. No rebound or guarding. No CVA tenderness. EXTREMITIES: No clubbing, cyanosis or pedal edema. MUSCULOSKELETAL: No joint swelling. NEUROLOGIC: Awake, alert, oriented times three. No focal deficit. LYMPHATIC: No lymph nodes palpable. SKIN: Intact. LABS: Sodium 138, potassium 3.6, chloride 107, bicarb 22, BUN 37, creatinine 1.38, calcium 11.4, WBC 10.86, hgb 13.8, hct 39.6, plt count 223 ASSESSMENT: 1. Hypercalcemia with mildly elevated PTH level 2. History of coronary artery disease 3. Bypass surgery 4. Permanent pacemaker 5. Osteoarthritis 6. DJD spine 7. Diabetes 8. COPD 9. Continued Nicotine use. PLAN: 1. Continue IV fluids 2. Followup on the theophylline level 3. No anticoagulation as patient is very active and walking 4. Continue 2 liters Nasal Cannula TIME SPENT: More than 35 minutes MTDD
--- NOTE | 2017-02-17 15:56 | DS ---
DATE OF SERVICE: 02/11/17 FINAL DIAGNOSIS: 1. Hypercalcemia with the mildly elevated PTH level 67 further evaluation needed as an outpatient as patient is very active and the follows with sales activity manager Dr. Cornelius 2. Diabetes 3. Chronic kidney disease 4. Coronary artery disease, bypass surgery 5. Status post permanent pacemaker 6. COPD 7. Oxygen dependant 8. Continued nicotine use DISCHARGE INSTRUCTIONS: Discharge the patient home. Theophylline being changed to once a day. Continue the rest of the medications as is. Appointment scheduled with Dr. Farley in [facility], Endocrinology on February 17, Aga Slater February 24, [facility] Program Manager Yoseph Cornelius office on the March 01. MEDICATIONS AT DISCHARGE: Zestril 20mg PO twice a day Aspirin 81mg PO daily Fenofibrate 160mg PO daily Lipitor 40mg PO bedtime Isosorbide Dinitrate 40mg PO twice a day Dexilant 30mg PO daily Effient 5mg Po daily Vitamin D3 1,000 units PO PRN Albuterol 0.083% Nebulizer RT Q 8 hours PRN Stool Softener 100mg PO PRN Glipizide 2.5mg PO twice a day [place] 7.5-325mg PO Q 6 hours PRN Lasix 20mg PO PRN Humalog 75-25 SQ as directed Combivent 1 spray IG PRN [place] 300mg PO daily NEW PRESCRIPTIONS: [place] 300mg PO daily DIET INSTRUCTIONS: Cardiac and diabetic diet ACTIVITY: As much as tolerated SMOKING: Current every day smoker, light tobacco smoker. DISEASE SPECIFIC EDUCATION: Hypercalcemia and need for further evaluation with the sales activity manager been discussed with the patient and verbalized understanding. HOSPITAL COURSE: Alejandro Berrios is a 66 year old male who is being seen by [facility] Program Manager as outpatient sitting and persistent hypercalcemia 11.9 when the labs were done with elevated BUN and creatinine the patient was advised to come to the emergency room on 01/31/17 but patient finally ended up coming to the emergency room on the 02/08/17 where his Calcium was 11.2 and at that time the patient was admitted to the hospital for the hypercalcemia and evaluated. CT of the chest did show the lung nodules but no acute findings. IV fluids were given for asymptomatic hypercalcemia. BUN and creatinine got better eventually. Calcium was 11.2, 11.1 and 11.4. Protein been normal. PTH was 67. Wait for the evaluation with the [facility] Program Manager. The patient is very active and most of the time he has been wondering and went outside and smoked. Strictly advised against smoking but the patient does not want to quit smoking at the given time. As the patient been active and further evaluation is needed he is being discharged home. Advised to have followup with Dr. Cornelius as outpatient so that he can be still evaluated again. The patient been informed that he has to do the one more CMP within one week and have followup with Aga Slater. TIME SPENT: MORE THAN 55 MINUTES FADUMO
== END 2017-02-11 11:50 | disposition home or self-care (01) | DRG 641 ==
LOC: ED 16:34 → MEDSURG A 18:04
PROVIDERS: ADMIT Emergency Medicine; ATTEND Emergency Medicine
DX: E83.52 Hypercalcemia (principal); R91.8 Other nonspecific abnormal finding of lung field; I12.9 Hypertensive chronic kidney disease with stage 1 through stage 4 chronic kidney disease, or unspecified chronic kidney disease; E11.22 Type 2 diabetes mellitus with diabetic chronic kidney disease; N18.9 Chronic kidney disease, unspecified; J44.9 Chronic obstructive pulmonary disease, unspecified; I10 Essential (primary) hypertension; E78.5 Hyperlipidemia, unspecified; I25.10 Atherosclerotic heart disease of native coronary artery without angina pectoris; M47.9 Spondylosis, unspecified; R05 Cough; F17.200 Nicotine dependence, unspecified, uncomplicated; Z95.0 Presence of cardiac pacemaker; Z79.4 Long term (current) use of insulin; Z95.1 Presence of aortocoronary bypass graft; Z99.81 Dependence on supplemental oxygen; Z79.899 Other long term (current) drug therapy
CPT/HCPCS: 36415; 80053; 80198; 82306; 82652; 82962; 83970; 85025; 93005; 93010; 94640; 96374; 99284

== ENCOUNTER 2017-02-15 08:30 | Outpatient (CLI) | payer OTHER ==
[2017-02-15 09:02] LABS: ALBUMIN 3.1 g/dL (3.4-5.0); ALBUMIN/GLOBULIN RATIO 1.03; ANION GAP 10.3; BILIRUBIN,TOTAL 0.53 mg/dL (0.00-1.20); BUN/CREATININE RATIO 28.44; CALCIUM 10.6 mg/dL (8.2-10.2); CREATININE 1.09 mg/dL (0.60-1.10); POTASSIUM 4.3 mmol/L (3.5-5.1); TOTAL PROTEIN 6.1 g/dL (5.8-8.1)
== END 2017-02-15 08:31 | disposition home or self-care (01) ==
LOC: LAB 08:30
PROVIDERS: ATTEND Emergency Medicine
DX: E83.52 Hypercalcemia (principal)
CPT/HCPCS: 36415; 80053

== ENCOUNTER 2017-02-26 10:30 | Outpatient (CLI) | payer OTHER | END 2017-02-26 10:31 | disposition home or self-care (01) | LOC: LAB 10:30 | PROVIDERS: ATTEND Physician Assistant | DX: E83.52 Hypercalcemia (principal) | CPT/HCPCS: 36415; 81050 ==

== ENCOUNTER 2017-04-04 13:20 | Outpatient (CLI) | END 2017-04-04 13:21 | disposition home or self-care (01) | LOC: CAR 13:20 | PROVIDERS: ATTEND Physician Assistant | DX: R40.0 Somnolence (principal); G47.30 Sleep apnea, unspecified | CPT/HCPCS: 95810 ==

== ENCOUNTER 2017-11-08 10:05 | Outpatient (CLI) | payer OTHER ==
--- NOTE | 2017-11-08 11:57 | DI ---
Exam: Two views of the chest. Comparison: 01/19/2017. Reason for exam: Cough. FINDINGS: Operative changes are seen after midline sternotomy and implanted intracardiac device plac ement. No pneumothorax, pleural effusion, or focal consolidation. The cardiac silhouette is not enlarged. Degenerative disease is seen in the thoracic spine. Impression: No acute cardiopulmonary process.
== END 2017-11-08 10:06 | disposition home or self-care (01) ==
LOC: RAD 10:05
PROVIDERS: ATTEND Physician Assistant
DX: R05 Cough (principal)

== ENCOUNTER 2017-11-17 13:14 | Outpatient (CLI) | payer OTHER ==
--- NOTE | 2017-11-17 13:59 | US ---
EXAM: Left lower extremity venous Doppler HISTORY: Concern for DVT with left lower extremity pain and tenderness. COMPARISON: none TECHNIQUE: Sonographic and Doppler evaluation of the left lower extremity vessels from the common fe moral through the anterior tibial veins were obtained. Augmentation and compression techniques were also performed. FINDINGS: There is partial thrombus in the left superficial femoral vein and occlusive thrombus from the popliteal vein throughout the residual lower extremity. There is spontaneous Doppler flow seen in the left common femoral, greater saphenous and profunda veins. Compression and augmentation on the proximal veins are normal. Soft tissues are unremarkable. IMPRESSION: Partial thrombus in the superficial vein with complete thrombus in the popliteal vein through the di stal leg. These results were given to ordering provider Aga Slater in the emergency room.
== END 2017-11-17 13:15 | disposition home or self-care (01) ==
LOC: RAD 13:14
PROVIDERS: ATTEND Physician Assistant
DX: M79.662 Pain in left lower leg (principal)

== ENCOUNTER 2018-01-03 10:54 | Outpatient (CLI) ==
--- NOTE | 2018-01-03 11:58 | DI ---
EXAM: Two views of the chest. History: Atypical chest pain. Comparison: Chest radiograph 11/09/2015, chest CT 02/08/2017 Findings: Heart is mildly enlarged. Sternotomy wires with some discontinuous but stable. Pacer dev ice. No focal consolidation. No appreciable pleural fluid and no pneumothorax. No acute osseous abno rmalities. Impression: Mild cardiomegaly without acute disease in the chest. No change compared to the prior s tudy.
== END 2018-01-03 10:55 | disposition home or self-care (01) ==
LOC: RAD 10:54
PROVIDERS: ATTEND Physician Assistant
DX: R07.89 Other chest pain (principal)
CPT/HCPCS: 93005; 93010

== ENCOUNTER 2018-01-04 09:05 | Outpatient (CLI) | END 2018-01-04 09:06 | disposition home or self-care (01) | LOC: LAB 09:05 | PROVIDERS: ATTEND Physician Assistant | DX: J44.9 Chronic obstructive pulmonary disease, unspecified (principal) | CPT/HCPCS: 36415; 80198 ==

== ENCOUNTER 2018-01-12 09:39 | Outpatient (CLI) ==
--- NOTE | 2018-01-12 11:42 | DI ---
EXAM: Six views of the bilateral ribs. History: Bilateral chest pain. Comparison: Chest radiograph 01/03/2018 Findings: Pacer device. Artificial heart valve. Sternotomy wires. No pneumothorax. No appreciabl e pleural fluid. IVC filter. Cholecystectomy clips. No acute displaced rib fractures are identifie d. Impression: No definite rib fractures are seen. If symptoms persist, recommend further evaluation w ith chest CT.
== END 2018-01-12 09:40 | disposition home or self-care (01) ==
LOC: RAD 09:39
PROVIDERS: ATTEND Physician Assistant
DX: R07.81 Pleurodynia (principal)

== ENCOUNTER 2018-01-24 08:56 | Outpatient (CLI) ==
--- NOTE | 2018-01-24 12:34 | CT ---
EXAM: CT chest without contrast. HISTORY: Chest pain, lower chest muscle spasm. COMPARISON: 02/08/2017, 05/28/2016, 05/07/2016. TECHNIQUE: Multiple axial images of the chest were obtained without intravenous contrast. Images we re reformatted in the sagittal and coronal planes. FINDINGS: Evaluation for lymphadenopathy is limited by lack of intravenous contrast. Left-sided elec tronic cardiac device noted. There has been previous CABG. The manubrial wires traverse the sternoto my defect. The two sternal body wires only surround the left side of the sternum, not extending acro ss the sternotomy to involve the right side of the sternum. The lower most sternotomy wire is fractu red. Heart size is at the upper limits normal. Atherosclerotic calcifications are present. A 0.5 cm right lower lobe nodule on axial image 35. A 0.6 cm left lower lobe nodule noted on axial i mage 43. Smaller left lower lobe nodule on axial image 41 noted. These nodules are stable. No pleu ral effusion or pneumothorax identified. Old right posterior eighth rib fracture noted. The. No acute rib fracture is seen in the the. Limited images of the upper abdomen demonstrate no acute finding. IMPRESSION: 1. No acute cardiopulmonary process. 2. Stable bilateral pulmonary nodules. 3. Stable sternotomy changes as described.
== END 2018-01-24 08:57 | disposition home or self-care (01) ==
LOC: RAD 08:56
PROVIDERS: ATTEND Physician Assistant
DX: R07.81 Pleurodynia (principal)

== ENCOUNTER 2018-01-26 11:45 | Outpatient (CLI) | payer OTHER | END 2018-01-26 11:46 | disposition home or self-care (01) | LOC: LAB 11:45 | PROVIDERS: ATTEND Physician Assistant | DX: R07.89 Other chest pain (principal) | CPT/HCPCS: 36415; 80053; 85025 ==

== ENCOUNTER 2018-02-03 11:23 | Outpatient (CLI) ==
--- NOTE | 2018-02-03 14:08 | DI ---
EXAM: Two views of the thoracic spine. History: Thoracic back pain. Findings: Heart is enlarged. Sternotomy wires. Artificial heart valve. Pacer device. No acute fr acture or subluxation of the thoracic spine. Mild to moderate multilevel degenerative disc space shoaib rowing with several prominent anterior osteophytes. Impression: 1. No acute osseous abnormality of the thoracic spine. 2. Mild to moderate degenerative disc disease.
== END 2018-02-03 11:24 | disposition home or self-care (01) ==
LOC: RAD 11:23
PROVIDERS: ATTEND Physician Assistant
DX: R07.81 Pleurodynia (principal)

== ENCOUNTER 2018-02-09 09:25 | Outpatient (CLI) | payer OTHER ==
--- NOTE | 2018-02-09 10:53 | CT ---
EXAM: CT of the abdomen without contrast History: Bilateral flank pain. Comparison: CT abdomen pelvis 11/23/2016 Technique: Multiplanar CT images through the abdomen were obtained without the administration of IV contrast Findings: Prominent heart size. No change in the 7 mm left lower lobe lung nodule. No acute osseous abnormalities. Degenerative changes of the spine. Status post cholecystectomy. No focal liver or splenic lesions. No peripancreatic inflammation. At herosclerotic vascular calcifications. IVC filter. Adrenal glands are within normal limits. 0.8 cm calcification seen within the inferior pole of the left kidney and is stable. No hydronephrosis. N o change in the nonspecific bilateral perinephric stranding. Prominent gastric folds. Borderline fl uid filled dilated loops of small bowel. Atherosclerotic vascular calcifications. No free air and n o ascites. No pathologically enlarged lymph nodes. Impression: 1. Probable mild gastroenteritis. 2. No change in the nonspecific bilateral perinephric stranding. 3. Nonobstructing right nephrolithiasis. 4. Atherosclerotic vascular disease. 5. IVC filter.
== END 2018-02-09 09:26 | disposition home or self-care (01) ==
LOC: RAD 09:25
PROVIDERS: ATTEND Physician Assistant
DX: R10.9 Unspecified abdominal pain (principal)

== ENCOUNTER 2018-06-12 11:29 | Emergency (ER) | payer OTHER ==
[2018-06-12 11:42] VITALS: BP 113/65; TEMP 98; BMI 28.6
--- NOTE | 2018-06-12 13:53 | ED.PDOC ---
General ED Provider: Dr. NOVA NIEVES Chief Complaint: Respiratory Complaint Stated Complaint: flu like symptoms Time Seen by Physician: 11:30 Mode of Arrival: Walk-In Information Source: Patient Exam Limitations: No limitations Primary Care Provider: SHAKEEL GUALLPA Nursing and Triage Documentation Reviewed and Agree: Yes Does patient meet sepsis criteria?: No System Inflammatory Response Syndrome: Not Applicable Sepsis Protocol: For patient's 13 years and over: Temp is 96.8 and below OR 101 and greater Pulse >90 BPM Resp >20/minute Acutely Altered Mental Status Are patient's symptoms suggestive of a new infection, such as: -Pneumonia -Skin, Soft Tissue -Endocarditis -UTI -Bone, Joint Infection -Implantable Device -Acute Abdominal Infection -Wound Infection -Meningitis -Blood Stream Catheter Infection -Unknown Respiratory Complaint Exam - Respiratory Complaint/Exam Symptoms Are: Still present Timing: Intermittent Initial Severity: Mild Current Severity: None Location: Nose, Throat, Chest Character: Reports: Non-productive cough Aggravating: Reports: None Alleviating: Reports: Spontaneous resolution Associated Signs and Symptoms: Reports: Chills, URI, Nasal congestion. Denies: Rapid breathing, Dyspnea, Fever, Chest pain, Pleuritic chest pain, Wheezing, Hemoptysis, Dizziness, Calf pain, Calf swelling, Edema, Hoarseness, Sinus discomfort, Vomiting, Sore throat, Weight loss, Decreased oral intake, Increased thirst, Increased appetite, Increased urination Related History: Reports: Similar episode History of Healthcare-Acquired Pneumonia: No Related Surgical History: Reports: None Pulmonary Embolism Risk Factors: None Cardiac Risk Factors: Reports: None Pseudomonas Risk Factors: Reports: None Tuberculosis Risk Factors: Reports: None Status Asthmaticus Risk Factors: Reports: None Home Oxygen Use: No Recent Stress Test: No Recent Echo/LV Function: No Current Antibiotic Use: No Current Asthma Medication Use: No Respiratory Distress: None Inadequate Respiratory Effort: No Dysphagia Present: No Stridor Present: No JVD Present: No Accessory Muscle Use: No Retractions: Not Present Diminished Breath Sounds: No Sinus Tenderness: None Grunting Respirations: No Kussmaul Respirations: No Differential Diagnoses: Bronchitis, URI, Influenza Review of Systems - Review Of Systems Constitutional: Reports: Chills, Fever, Malaise, Loss of appetite Eyes: Reports: No symptoms Ears, Nose, Mouth, Throat: Reports: Throat pain Respiratory: Reports: Cough Cardiac: Reports: No symptoms GI: Reports: No symptoms : Reports: No symptoms Musculoskeletal: Reports: No symptoms Skin: Reports: No symptoms Neurological: Reports: No symptoms Endocrine: Reports: No symptoms Hematologic/Lymphatic: Reports: No symptoms All Other Systems: Reviewed and Negative Past Medical History - Past Medical History Previously Healthy: Yes Endocrine: Reports: DM 2, Dyslipidemia Cardiovascular: Reports: CAD, Hypertension, CHF Respiratory: Reports: COPD, PE (BLOOD CLOT/LUNG) Hematological: Reports: Other Gastrointestinal: Reports: None Genitourinary: Reports: None, CKD Neuro/Psych: Reports: CVA, Migraine, Depression Musculoskeletal: Reports: Arthritis Cancer: Reports: None Other Pertinent Past Medical History: htn dm chl cva chf copd kd 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 - Surgical History General Surgical History: Reports: CABG (5 years ago) - Family History Family History: Reports: Unknown - Social History Smoking Status: Current every day smoker, Light tobacco smoker Hx Substance Use: No Alcohol Screening: None Physical Exam - Physical Exam Appearance: Well-appearing, No pain distress, Well-nourished Eyes: KM, EOMI, Conjunctiva clear ENT: Erythema Respiratory: Airway patent, Breath sounds clear, Breath sounds equal, Respirations nonlabored Cardiovascular: RRR, Pulses normal, No rub, No murmur GI/: Soft, Nontender, No masses, Bowel sounds normal, No Organomegaly Musculoskeletal: Normal strength, ROM intact, No edema, No calf tenderness Skin: Warm, Dry, Normal color Neurological: Sensation intact, Motor intact, Reflexes intact, Cranial nerves intact, Alert, Oriented Psychiatric: Affect appropriate, Mood appropriate Critical Care Note - Critical Care Note Total Time (mins): 0 Course - Course Orders, Labs, Meds: Lab Review 06/12/18 13:20 Influ A Molecular Assay Positive by naat H Influ B Molecular Assay Negative by naat Orders Category Date Time Status FLU A/B MOLECULAR Stat LAB 06/12/18 13:12 Uncollected MOLECULAR GROUP A STREP Stat LAB 06/12/18 13:12 Uncollected Vital Signs: Temp Pulse Resp BP Pulse Ox 06/12/18 11:30 98.0 F 78 20 113/65 95 Departure - Departure Time of Disposition: 13:52 Disposition: HOME SELF-CARE Discharge Problem: Influenza A Instructions: Influenza (ED), Influenza (DC) Condition: Good Pt referred to PMD for follow-up: Yes IPMP verified?: No Additional Instructions: Please call your Family Physician as soon as possible to schedule a follow-up appointment. Allergies/Adverse Reactions: Allergies ibuprofen Adverse Reaction (Intermediate, Verified 06/12/18 11:33) Vomiting clopidogrel bisulfate [From Plavix] Adverse Reaction (Verified 06/12/18 11:33) codeine Adverse Reaction (Verified 06/12/18 11:33) doxycycline Adverse Reaction (Verified 06/12/18 11:33) levofloxacin [From Levaquin] Adverse Reaction (Verified 06/12/18 11:33) morphine Adverse Reaction (Verified 06/12/18 11:33) Home Medications: Ambulatory Orders Aspirin [Valerie Chewable] 81 mg PO DAILY 01/12/13 Lisinopril [Zestril] 40 mg PO BID 01/12/13 Fenofibrate Nanocrystallized [Fenofibrate] 160 mg PO DAILY 06/08/14 Atorvastatin Calcium [Lipitor] 40 mg PO BEDTIME 07/19/15 Dexlansoprazole [Dexilant] 30 mg PO DAILY 12/02/15 Isosorbide Dinitrate 40 mg PO BID 12/02/15 Prasugrel HCl [Effient] 5 mg PO DAILY 05/28/16 Albuterol Sulfate 0.083% Neb [Albuterol 0.083% Neb] 1 vial NEB RTQ8H PRN Docusate Sodium [Stool Softener] 100 mg PO PRN PRN 08/05/16 Furosemide [Lasix] 20 mg PO PRN PRN 12/10/16 Glipizide 2.5 mg PO BIDAC 12/10/16 Hydrocodone/Acetaminophen [[place] 7.5-325 Tablet] 7.5 - 325 mg PO Q6H PRN Insulin NPL/Insulin Lispro [Humalog Mix 75-25] 1 unit SQ DIRECTED 12/10/16 Theophylline Anhydrous [[place]-Dur] 300 mg PO DAILY #1 tab.er.12h 02/11/17 Apixaban [Eliquis] 5 mg PO DAILY 06/12/18 Glycopyrrolate/Formoterol Fum [Bevespi Aerosphere Inhaler] 2 puff IH BID
== END 2018-06-12 14:34 | disposition home or self-care (01) ==
LOC: ED 11:29
DX: J11.1 Influenza due to unidentified influenza virus with other respiratory manifestations (principal); F17.210 Nicotine dependence, cigarettes, uncomplicated
CPT/HCPCS: 87502; 87651; 99283

== ENCOUNTER 2018-06-19 19:28 | Outpatient (CLI) | payer OTHER | END 2018-06-19 19:57 | disposition short-term general hospital (02) | LOC: AMBL 19:28 | PROVIDERS: ATTEND Family Medicine | DX: R50.9 Fever, unspecified (principal); R52 Pain, unspecified; R53.1 Weakness; J11.1 Influenza due to unidentified influenza virus with other respiratory manifestations; Z99.81 Dependence on supplemental oxygen ==

== ENCOUNTER 2018-06-27 15:18 | Outpatient (CLI) ==
--- NOTE | 2018-06-27 15:51 | DI ---
EXAM: Two views of the chest. History: Cough. Comparison: Chest radiograph 05/11/2018 Findings: Heart is mildly enlarged. Bilateral interstitial thickening with reticular nodular appear ance. No appreciable pleural fluid and no pneumothorax. No acute osseous abnormalities. Sternotomy wires and pacer device. Artificial heart valve. Impression: Bilateral reticular nodular interstitial thickening could represent interstitial pulmona ry edema and/or pneumonia. Follow-up recommended.
== END 2018-06-27 15:19 | disposition home or self-care (01) ==
LOC: RAD 15:18
PROVIDERS: ATTEND Nurse Practitioner Family
DX: R05 Cough (principal)

== ENCOUNTER 2018-08-30 17:49 | Outpatient (CLI) | payer OTHER | END 2018-08-30 17:50 | disposition home or self-care (01) | LOC: LAB 17:49 | PROVIDERS: ATTEND Nurse Practitioner Family | DX: R19.7 Diarrhea, unspecified (principal); E89.2 Postprocedural hypoparathyroidism | CPT/HCPCS: 36415; 80053; 84100; 85025; 87015; 87045; 87493; 87899 ==

== ENCOUNTER 2018-10-23 08:56 | Day surgery (SDC) | payer OTHER ==
[2018-10-23] MEDS: TETRACAINE 0.5% UNIT-DOSE OP PRN ×4 (09:30→11:21)
[2018-10-23] MEDS: CYCLOGYL 2% OPTH OP PRN ×3 (09:30→09:40)
[2018-10-23] MEDS: AK-DILATE 10% OPTH SOL OP PRN ×3 (09:30→09:40)
[2018-10-23] MEDS: OCUFEN 0.03% OPTH SOL OP PRN ×4 (09:31→11:37)
[2018-10-23] MEDS: LIDOCAINE 1% 20 ML MDV ID STA ×2 (09:50→11:23)
[2018-10-23] MEDS ORDERED: DIAMOX PO STA (10:06)
[2018-10-23 10:33] VITALS: TEMP 97.8
[2018-10-23] MEDS ORDERED: VERSED ONE (11:15)
[2018-10-23] MEDS ORDERED: DIAMOX ONE (11:45)
[2018-10-23 13:10] VITALS: BP 134/66
--- NOTE | 2018-10-23 13:24 | OP ---
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 POSTOPERATIVE DIAGNOSIS: SAME. OPERATION PHACOEMULSIFICATION ASPIRATION OF CATARACT LEFT EYE. PLACEMENT OF POSTERIOR CHAMBER LENS. PHACO TIME 28.7 SECONDS AT 3% POWER. LENS MODEL TECCHRISTIANO [id number]. DIOPTER +20.5D. TECHNIQUE: CLEAR CORNEA. ANESTHESIA: TOPICAL ANESTHESIA W/ANESTHESIA MONITORING. OPERATIVE REPORT: Topical anesthesia consisting of Tetracaine was applied to the cornea and Xylocaine Methyl Paraben free of MFP was injected intracamerally into the anterior chamber. The patient was then brought into the operating room , prepped and draped in the usual ophthalmic manner. A lid speculum was placed and the operating microscope was used. A paracentesis was made at the 3 o' clock position. A clear corneal incision was made just out to the limbus. The anterior chamber was entered just inside the clear cornea. Viscoelastic was injected into the anterior chamber. A capsulotomy was performed with a bent # 27 gauge needle. Phacoemulsification was then performed in the posterior chamber. After completion of the phacoemulsification, residual cortical material was aspirated with the irrigation-aspiration system. The posterior capsule was polished. Viscoelastic was injected into the anterior and posterior chambers to inflate the capsular bag. Lens were placed via an Unfolder system and stabilized in the bag. Viscoelastic was removed from the anterior chamber. The wound was checked for any leakage. The four sponges were removed from the fornix. Topical antibiotic steroid and nonsteroidal drops were also applied to the cornea. A Chapman shield was applied. The patient left the operating room in good condition without any complications. INTRAOPERATIVE MEDICATIONS: Xylocaine Methyl Paraben Free MPF MTDD
== END 2018-10-23 12:25 | disposition home or self-care (01) ==
LOC: SURG 08:56
PROVIDERS: ATTEND Ophthalmology
DX: H25.13 Age-related nuclear cataract, bilateral (principal); H25.013 Cortical age-related cataract, bilateral

== ENCOUNTER 2019-08-01 12:47 | Observation (INO) ==
--- NOTE | 2019-08-01 13:01 | ED.PDOC ---
General ED Provider: Dr. YANA OSBORN Chief Complaint: Shortness of Air Stated Complaint: Dizzy, light headed, short of air (COPD), left lower ribs hurt with movement and deep breathing (Denies falls). Diarrhea since yesterday with some nausea, no vomiting. Has had a problem for several months with Magnesium levels. Has been taking his medications regularly. Time Seen by Physician: 13:01 Mode of Arrival: Walk-In Information Source: Patient Exam Limitations: No limitations Primary Care Provider: SHAKEEL GUALLPA Nursing and Triage Documentation Reviewed and Agree: Yes Does patient meet sepsis criteria?: No System Inflammatory Response Syndrome: Not Applicable Sepsis Protocol: For patient's 13 years and over: Temp is 96.8 and below OR 101 and greater Pulse >90 BPM Resp >20/minute Acutely Altered Mental Status Are patient's symptoms suggestive of a new infection, such as: -Pneumonia -Skin, Soft Tissue -Endocarditis -UTI -Bone, Joint Infection -Implantable Device -Acute Abdominal Infection -Wound Infection -Meningitis -Blood Stream Catheter Infection -Unknown Review of Systems Review Of Systems Constitutional: Reports Malaise and Weakness Respiratory: Reports No symptoms Cardiac: Reports Chest pain (Left lower rib cage; no bruising) All Other Systems: Reviewed and Negative [facility] Medical History Atherosclerosis of coronary artery Congestive heart failure Hypertension Insulin dependent type 1 diabetes mellitus Family History Mother No problems noted. Other Type 1 diabetes mellitus Social History Smoking and tobacco status: Current every day smoker Physical Exam Physical Exam Appearance: Reports Ill-appearing Ill-appearing: Mild (Uncomfortable appearing) Pain Distress: Mild (Left anterior rib cage, sensitive to palpation. Worse with deep breathing) Eyes: Reports KM, EOMI and Conjunctiva clear ENT: Reports Nose normal and Oropharynx normal Neck: Supple Respiratory: Reports Airway patent, Breath sounds clear and Breath sounds equal Cardiovascular: Reports RRR and Pulses normal GI/: Reports Soft and Nontender Musculoskeletal: Reports Normal strength, ROM intact and No edema Skin: Reports Warm, Dry and Normal color Neurological: Reports Sensation intact, Motor intact, Alert and Oriented Psychiatric: Reports Affect appropriate and Mood appropriate Interpretation Radiology Interpretation Exam Interpreted: CXR and Other (L rib series; no FX) Xray Comments: No acute cardiopulmonary process Dental Chair Assembler Time of Dental Chair Assembler Interpretation: 13:05 Rate: Normal Rhythm: Sinus Ectopy: None EKG Interpretation Time of EKG #1: 13:10 Rate: Normal Rhythm: Sinus Ectopy: None Hollis: NL ST Segment: Normal Interpretation: Right Bundle Branch Block Re-Evaluation Re-Evaluation Time of Re-Evaluation: 16:31 Status: Unchanged (Still feeling light headed - dizzy. Fluids less than half in) Vital Signs Stable: Yes Appearance: NAD Skin: Warm and Dry Neuro: Alert and Oriented X3 Additional Comments: Educated re fluids/diarrhea. Hopefully will be stable to go home after fluids Re-Evaluation Time of Re-Evaluation: 18:35 Status: Improved Appearance: NAD Skin: Warm and Dry Neuro: Alert and Oriented X3 Additional Comments: Diarrhea lessened; still feels dizzy and light headed. Discussed admission for observation Critical Care Note Critical Care Note Total Time (mins): 35 Comments: Review of prior records; clinical picture - review of labs; discusion with Hospitalist and with patient - decision to admit. Course Course Hematology/Chemistry: 08/01/19 13:26 08/01/19 13:26 Orders, Labs, Meds: Lab Review 08/01/19 08/01/19 13:26 13:26 WBC 9.42 RBC 4.86 Hgb 14.9 Hct 43.6 MCV 89.7 MCH 30.7 MCHC 34.2 RDW Coeff of [place] 13.7 Plt Count 277 Immature Gran % (Auto) 0.6 Neut % (Auto) 61.3 Lymph % (Auto) 24.7 [place] % (Auto) 6.2 Eos % (Auto) 6.4 Baso % (Auto) 0.8 Immature Gran # (Auto) 0.1 Neut # (Auto) 5.8 Lymph # (Auto) 2.3 [place] # (Auto) 0.6 Eos # (Auto) 0.6 Baso # (Auto) 0.1 Sodium 134.8 Potassium 4.22 Chloride 103.1 Carbon Dioxide 23.7 Anion Gap 12.22 BUN 45.7 H Creatinine 1.61 H Estimated GFR (MDRD) 43.00 BUN/Creatinine Ratio 28.38 Glucose 309.0 H Calcium 8.83 Magnesium 2.16 Total Bilirubin 0.38 AST 35.2 ALT 17.7 Alkaline Phosphatase 67.1 Total Protein 6.59 Albumin 3.61 Globulin 2.98 Albumin/Globulin Ratio 1.21 Orders Category Date Time Status EKG-(ED ONLY) Stat CARDIO 08/01/19 13:09 Completed NEBULIZER TREATMENT Routine CARDIO 08/01/19 18:57 Ordered NEBULIZER TREATMENT Stat CARDIO 08/01/19 18:57 Ordered ACTIVITY .BR with BRP CARE 08/01/19 18:54 Active INTAKE & OUTPUT Q8HR CARE 08/01/19 18:54 Active IV ACCESS ONCE CARE 08/01/19 14:56 Active VITAL SIGNS Q8HR CARE 08/01/19 18:54 Completed REGULAR DIET DIETARY 08/01/19 Breakfast Ordered CBC W/ AUTO DIFF DAILY@0600 LAB 08/02/19 06:00 Ordered CBC W/ AUTO DIFF DAILY@0600 LAB 08/03/19 06:00 Ordered CBC W/ AUTO DIFF Stat LAB 08/01/19 13:26 Completed COMPREHENSIVE METABOLIC PANEL DAILY@0600 LAB 08/02/19 06:00 Ordered COMPREHENSIVE METABOLIC PANEL DAILY@0600 LAB 08/03/19 06:00 Ordered COMPREHENSIVE METABOLIC PANEL Stat LAB 08/01/19 13:26 Completed MAGNESIUM Stat LAB 08/01/19 13:26 Completed Albuterol Sulfate 0.083% Neb [Albuterol 0.083% Neb] MEDS 08/01/19 18:57 Active 2.5 mg NEB RTQ8H PRN Apixaban [Eliquis] MEDS 08/01/19 21:00 Active 5 mg PO BID Aspirin [Aspirin Chewable] MEDS 08/02/19 09:00 Active 81 mg PO DAILY Atorvastatin Calcium [Lipitor] MEDS 08/01/19 21:00 Pending 80 mg PO BID Carvedilol [Coreg] MEDS 08/01/19 21:00 Active 3.125 mg PO BID Dicyclomine HCl [Bentyl] MEDS 08/01/19 21:00 Active 10 mg PO TID Glipizide [Glucotrol] MEDS 08/02/19 06:30 Active 5 mg PO BIDAC Hydrocodone Bit/Acetaminophen [Seltzer 7.5-325] MEDS 08/01/19 19:02 Active 1 tab PO Q4H PRN Isosorbide Mononitrate [Imdur] MEDS 08/02/19 09:00 Active 30 mg PO DAILY Lisinopril [Zestril] MEDS 08/01/19 21:00 Active 40 mg PO BID Nicotine 14 mg [Nicoderm 14 mg] MEDS 08/01/19 18:56 Discontinued 1 patch TD ONCE STA Sodium Chloride 0.9% [Sodium Chloride] 1,000 ml MEDS 08/01/19 19:00 Active IV 100 mls/hr Sodium Chloride 0.9% [Sodium Chloride] 1,000 ml MEDS 08/01/19 14:56 Discont inued IV BOLUS Theophylline Anhydrous [Theophylline ER 24Hr] MEDS 08/02/19 09:00 Active 400 mg PO DAILY Tizanidine HCl [Zanaflex] MEDS 08/01/19 19:00 Pending 4 mg PO DIRECTED albuterol sulfate [Ventolin HFA] MEDS 08/01/19 19:30 Pending 18 g INHALATION DIRECTED dexlansoprazole [Dexilant] MEDS 08/02/19 09:00 Active 30 mg PO DAILY glycopyrrolate-formoterol [Bevespi Aerosphere] MEDS 08/01/19 21:00 Active 2 puff INH BID insulin lispro protamin-lispro [Humalog Mix 75-25(U-100 MEDS 08/01/19 19:00 Ordered )Insuln] 10 unit SQ DIRECTED magnesium oxide MEDS 08/01/19 21:00 Active 1,200 mg PO TID nitroglycerin [nitroglycerin] MEDS 08/01/19 19:00 Active 0.4 mg SL Q5MIN X 3 DOSES PRN RESUSCITATION STATUS Routine OTHERS 08/01/19 18:54 Ordered CHEST, 2 VIEWS PA & LAT Stat RADS 08/01/19 13:18 Completed RIBS, UNILATERAL LEFT Stat RADS 08/01/19 13:20 Completed Medications Generic Name Dose Route Start Last Admin Trade Name Freq PRN Reason Stop Dose Admin Hydrocodone Bitart/Acetaminophen 1 tab 08/01/19 19:02 Seltzer 7.5-325 PO Q4H PRN Severe Pain Albuterol Sulfate 2.5 mg 08/01/19 18:57 Albuterol 0.083% Neb NEB RTQ8H PRN Bronchospasm Apixaban 5 mg 08/01/19 21:00 Eliquis PO BID TISH Aspirin 81 mg 08/02/19 09:00 Aspirin Chewable PO DAILY [facility] Atorvastatin Calcium 80 mg 08/01/19 21:00 Lipitor PO BID [facility] Carvedilol 3.125 mg 08/01/19 21:00 Coreg PO BID [facility] Dicyclomine HCl 10 mg 08/01/19 21:00 Bentyl PO TID [facility] Glipizide 5 mg 08/02/19 06:30 Glucotrol PO BIDAC [facility] Sodium Chloride 1,000 mls @ 100 mls/hr 08/01/19 19:00 Sodium Chloride IV .Q10H [facility] Isosorbide Mononitrate 30 mg 08/02/19 09:00 Imdur PO DAILY [facility] Lisinopril 40 mg 08/01/19 21:00 Zestril PO BID [facility] Non-Formulary Medication 2 puff 08/01/19 21:00 Glycopyrrolate-Formoterol [Bevespi Aerosphere] INH BID [facility] Non-Formulary Medication 10 unit 08/01/19 19:00 Insulin Lispro Protamin-Lispro [Humalog Mix 75-25(U-100)Insuln] SQ DIRECTED [facility] Non-Formulary Medication 1,200 mg 08/01/19 21:00 Magnesium Oxide PO TID [facility] Non-Formulary Medication 0.4 mg 08/01/19 19:00 Nitroglycerin [Nitroglycerin] SL Q5MIN X 3 DOSES PRN CHEST PAIN Non-Formulary Medication 30 mg 08/02/19 09:00 Dexlansoprazole [Dexilant] PO DAILY [facility] Non-Formulary Medication 18 gm 08/01/19 19:30 Albuterol Sulfate [Ventolin Hfa] IH DIRECTED [facility] Theophylline 400 mg 08/02/19 09:00 Theophylline Er 24hr PO DAILY [facility] Tizanidine HCl 4 mg 08/01/19 19:00 Zanaflex PO DIRECTED [facility] Discontinued Medications Generic Name Dose Route Start Last Admin Trade Name Freq PRN Reason Stop Dose Admin Sodium Chloride 1,000 mls @ 1,000 mls/hr 08/01/19 14:56 08/01/19 15:33 Sodium Chloride IV 08/01/19 15:55 1,000 mls/hr BOLUS STA Administration Nicotine 1 patch 08/01/19 18:56 Nicoderm 14 Mg TD 08/01/19 18:57 ONCE STA Vital Signs: Temp Pulse Resp BP Pulse Ox 08/01/19 12:48 97.8 F 69 22 143/69 H 96 Discharge Plan Discharge Patient Disposition: PLACED OBSERVATION Discharge Problem: Acute dehydration, Enteritis ED Provider: YANA OSBORN Condition: Stable Discharge Date/Time: 08/01/19 20:01
[2019-08-01 13:32] LABS: HEMATOCRIT 43.6 % (42.0-52.0)
--- NOTE | 2019-08-01 13:58 | DI ---
EXAM: CHEST FRONTAL AND LATERAL VIEWS HISTORY: Chest pain. COMPARISON: 07/27/2019 FINDINGS: Heart size is upper limit normal. Prior sternotomy. Atherosclerotic disease. There is a left pacemaker unit which is stable. No acute infiltrates are seen. No vascular congestion. There is no consolidation, visible pleural fluid or pneumothorax. Bones reveal no acute fracture. IMPRESSION: Atherosclerotic disease. Prominent heart size. No acute cardiopulmonary process.
--- NOTE | 2019-08-01 14:00 | DI ---
EXAM: LEFT RIBS HISTORY: Left rib pain FINDINGS: Left ribs three-view. No displaced rib fracture is identified. There is no pleural fluid or pneumothorax. IMPRESSION: 1. No rib fracture identified.
[2019-08-01] MEDS ORDERED: SODIUM CHLORIDE 1,000 ML IV STA (14:56)
[2019-08-01] MEDS ORDERED: NICODERM 14 MG TD STA (18:56)
[2019-08-01] MEDS ORDERED: ALBUTEROL 0.083% NEB NEB PRN (18:57)
[2019-08-01] MEDS ORDERED: ZANAFLEX PO SCH (19:00)
[2019-08-01] MEDS ORDERED: NORCO 7.5-325 PO PRN (19:02)
[2019-08-01] MEDS ORDERED: ALBUTEROL SULFATE IH SCH (19:30)
[2019-08-01] MEDS ORDERED: COREG PO SCH (21:00)
[2019-08-01] MEDS ORDERED: LIPITOR PO SCH ×2 (21:00→21:47)
[2019-08-01] MEDS ORDERED: ELIQUIS PO SCH (21:00)
[2019-08-01] MEDS ORDERED: MAGNESIUM OXIDE PO SCH (21:00)
[2019-08-01] MEDS ORDERED: ZESTRIL PO SCH (21:00)
[2019-08-01] MEDS ORDERED: BENTYL PO SCH (21:00)
[2019-08-01 21:08] VITALS: BMI 25.5
[2019-08-01] MEDS ORDERED: ALBUTEROL SULFATE IH PRN (21:47)
[2019-08-01] MEDS ORDERED: ZANAFLEX PO PRN (21:47)
[2019-08-01] MEDS ORDERED: HUMALOG MIX 75-25 SUBCUT PRN (21:48)
[2019-08-01] MEDS: ALBUTEROL 0.083% NEB NEB SCH (22:03)
[2019-08-01] MEDS: SODIUM CHLORIDE 1,000 ML IV SCH (22:20)
[2019-08-01] MEDS: NON-FORMULARY MEDICATION (Glycopyrrolate-Formoterol [Bevespi Aerosphere] 2 PUFF) INH SCH (22:31)
[2019-08-01] MEDS ORDERED: MAGNESIUM OXIDE 750 MG PO SCH (22:42)
[2019-08-02] MEDS: ALBUTEROL 0.083% NEB NEB SCH ×3 (04:45→22:50)
[2019-08-02] MEDS: SODIUM CHLORIDE 1,000 ML IV SCH ×2 (05:30→16:51)
[2019-08-02 05:33] LABS: HEMATOCRIT 42.2 % (42.0-52.0)
[2019-08-02] MEDS ORDERED: GLUCOTROL PO SCH (06:30)
[2019-08-02] MEDS ORDERED: HYDROCODONE ACETAMINOPHEN PO PRN (07:16)
[2019-08-02] MEDS ORDERED: COREG PO SCH (08:00)
[2019-08-02] MEDS ORDERED: ASPIRIN CHEWABLE PO SCH ×2 (08:00)
--- NOTE | 2019-08-02 08:31 | PCM ---
Chief Complaint Chief Complaint: "lightheaded, dizzy like and left outer chest pain" History of Present Illness History of Present Illness: Ravi Berrios Jr is a 68 yo male patient of Janet Guallpa APRN who presented to [facility] ER 08/01/2019 ambulatory w/ c /o's of 07:00 08/01/2019 upon arising from bed of mild dizziness/lightheadedness w/ associated w/ "tunnel vision of room spinning w/ getting up and getting dressed". As the day progressed he experienced dull constant frontal headache w/ mild fatigue, falling to sleep easily while waiting in the ER, yesterday had 15-18 episodes of small amt brown to yellowish liquid stools decreasing to 1 episode since Inpatient admission around 5pm yesterday. He denies f/c, weakness, sweats, loss of appetite, ST, ear pain, sneezing, CP, palpitations, seizures, tremors, abdominal pain, or N/V. See ROS. He has COPD w/ his "usual" wheezing and cough w/ occasional clear sputum production. He denies any recent travel or known contacts w/ ill persons. He lives alone and is able to care for himself w/ a personal trainer helping 3 times a week w/ baths. Patient notes he drinks 2 pots of coffee each day and large quantities of water; has been hospitalized 10/2018 w/ low sodium level controlled w/ fluid restrictions upon review of past records by this provider. Patient has hx Type2 DM w/ SSI use, CAD post 1999 5 vessel CABG & 2 stents same year, HLD, Essential HTN,Asthma, Chronic pain issues involving Osteoarthitis of Spine, R shoulder and knees, and unknown stage CHF. He sees Dr. Lake of [facility] routinely and Dr. Gracia for pain management. Patient states he takes his medications routinely not missing doses. [facility] site was reviewed and confirmation of home meds w/ RX per Dr. Lake and Dr. Gracia verified w/ compliance. ER/AM labs note CBC essentially normal; CMP w/ abnormals BUN 46.2H, Creatinine 1.45H, Glucose 309.0 to 113.3; urinalysis normal except 3+Protein. CXR noted known atherosclerotic disease, prominent heart size, and no acute cardiopulmonary process. Patient also had R ribs x-ray d/t c/o's of R lateral chest pain at home feeling like stabbing lasting 1-2 minutes that noted no fractures, no displaced ribs or pleural effusions noted. Patient was admitted for observation for Enteritis and Acute Dehydration for IVF replacement and monitoring of labs including kidney function and elevated glucose. Patient is feeling much better this AM and has agreed to stay for 24 hrs or until stable w/ improved BUN/Creatinine levels. 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; 37 ear surgeries since anesthesiologist and critical care); Denies pain, bleeding and ringing Nose: Reports discharge (clear discharge from allergies intermittently); Denies bleeding and congestion Throat: Denies pain, swelling and voice change Mouth: Denies bleeding, pain and swelling Respiratory: Reports cough (chronic cough w/ clear phlegm and more asthma/allergy symptoms during spring season.) and wheeze (Uses inhaler prn for asthma.); Denies shortness of air, hemoptysis, pain with breathing and other Cardiovascular: Reports orthopnea (usual 2 pillow orthopnea for LT.); Denies chest pain, left arm pain, diaphoresis, PND, edema, palpitations and syncope Gastrointestinal: Reports diarrhea (chronic diarrhea for last 8 months w/ tx per PCP and probably d/t magnesium levels w/ PO magnesium supplement; Onset yesterday of 15-18 episodes of brown to yellowish liquid stools w/ 1 stool since admission to Inpatient unit.); Denies abdominal pain, nausea, vomiting, melena, hematemesis, hematochezia, dysphagia and constipation Genitourinary: Reports other (lightish yellow urine per patient report); Denies dysuria, hematuria, frequency, incontinence, flank pain, penile discharge, testicular pain and testicular swelling Neurological: Reports headache (see HPI; no chronic headaches) and dizziness; Denies seizure, numbness, weakness, speech difficulty, problems with walking, tremor and fainting Musculoskeletal: Reports pain (generalized rajani) and swelling in joints (multiple joint and back pain due to arthritis.) Skin: Reports bruising (purple blotches primarily arms due to Eliquis therapy) and other; Denies rash, pruritus, lacerations and wounds Hematology: Reports easy bruising; Denies easy bleeding and swollen glands Endocrine: Denies weight changes, cold intolerance, heat intolerance, excessive thirst, excessive hunger and polyuria Psychiatric: Denies depression, anxiety, sleeplessness, hopelessness, suicidal and hallucinations Habits: Reports tobacco use (1 PPD X 60 yrs.; asked for patch yesterday and does not want a patch now. ) and alcohol use (1-2 drinks per year. ); Denies substance use Allergies Allergies Allergy/AdvReac Type Severity Reaction Status Date / Time clopidogrel bisulfate AdvReac Severe "loose my Verified 08/02/19 07:45 [From Plavix] mind" codeine AdvReac Severe confusion Verified 08/02/19 07:45 morphine AdvReac Severe hives Verified 08/02/19 07:46 ibuprofen AdvReac Intermediate Vomiting Verified 08/01/19 12:52 doxycycline AdvReac "Night Verified 08/02/19 07:45 Mcgrath" levofloxacin [From Levaquin] AdvReac unknown Verified 08/02/19 07:45 PFSH Medical History (Updated 08/02/19 @ 15:20 by HILDA SUTHERLAND) Asthma (Chronic) Atherosclerosis of coronary artery Congestive heart failure Hypertension Pacemaker (Acute) Pulmonary nodule (Inactive) Shoulder pain (Chronic) Type 2 diabetes mellitus with insulin therapy (Chronic) Family History (Updated 08/01/19 @ 20:56 by MARAL DUBON RN) Mother Type 1 diabetes mellitus Myocardial infarct FATHER Type 1 diabetes mellitus Myocardial infarct Tuberculosis Social History (Updated 08/02/19 @ 13:43 by HILDA SUTHERLAND) Smoking and tobacco status: Current every day smoker Tobacco type: cigarettes Smoking packs per day: 1 Smoking cigarettes per day: 20.0 Years smoked: 60 Smoking pack-years: 60.00 Tobacco: How many years used: 60 Passive smoking exposure: Yes How long ago did patient quit smokin PPD X60 yrs Quit status: not considering quitting Alcohol intake: current Alcohol intake frequency: holidays/special occasions only Alcohol type: wine Substance use type: does not use Adopted: No Household members: spouse Housing: apartment Marital status: M Lives independently: Yes Number of children: 2 Number of grandchildren: 5 Highest education level completed: 9th grade service: No Current occupational status: retired History of recent travel: No Medications Medications: Medications Generic Name Dose Route Start Last Admin Trade Name Freq PRN Reason Stop Dose Admin Hydrocodone Bitart/Acetaminophen 1 tab 08/01/19 19:02 [place] 7.5-325 PO Q4H PRN Severe Pain Albuterol Sulfate 2.5 mg 08/01/19 22:00 08/02/19 04:45 Albuterol 0.083% Neb NEB 2.5 mg RTQ8H TISH Administration Aspirin 81 mg 08/02/19 08:00 Aspirin Chewable PO DAILYWM TISH Atorvastatin Calcium 80 mg 08/01/19 21:47 08/01/19 22:44 Lipitor PO 80 mg BEDTIME TISH Administration Carvedilol 3.125 mg 08/02/19 08:00 Coreg PO BIDWM TISH Dicyclomine HCl 10 mg 08/01/19 21:00 08/01/19 22:30 Bentyl PO 10 mg TID TISH Administration Glipizide 5 mg 08/02/19 17:30 Glucotrol PO BIDWM TISH Sodium Chloride 1,000 mls @ 100 mls/hr 08/01/19 19:00 08/02/19 05:30 Sodium Chloride IV 100 mls/hr .Q10H TISH Administration Insulin Lispro Protam/Lispro Human 0 unit 08/01/19 21:48 08/01/19 22:31 Humalog Mix 75-25 SUBCUT 3 unit PRN PRN Administration Hyperglycemia Protocol Isosorbide Mononitrate 30 mg 08/02/19 09:00 Imdur PO DAILY [facility] Lisinopril 40 mg 08/01/19 21:00 08/01/19 22:19 Zestril PO 40 mg BID TISH Administration Non-Formulary Medication 2 puff 08/01/19 21:00 08/01/19 22:31 Glycopyrrolate-Formoterol [Bevespi Aerosphere] INH 2 puff BID TISH Administration Non-Formulary Medication 0.4 mg 08/01/19 19:00 Nitroglycerin [Nitroglycerin] SL Q5MIN X 3 DOSES PRN CHEST PAIN Non-Formulary Medication 30 mg 08/02/19 09:00 Dexlansoprazole [Dexilant] PO DAILY TISH Non-Formulary Medication 18 gm 08/01/19 21:47 Albuterol Sulfate [Ventolin Hfa] IH Q4H PRN Wheezing Non-Formulary Medication 1 tab 08/02/19 07:16 Hydrocodone-Acetaminophen [Hydrocodone-Acetaminophen] PO Q6H PRN Pain Non-Formulary Medication 750 mg 08/02/19 09:00 Magnesium PO TID TISH Non-Formulary Medication 160 mg 08/02/19 09:00 Fenofibrate [Fenofibrate] PO DAILY [facility] Theophylline 400 mg 08/02/19 09:00 Theophylline Er 24hr PO DAILY [facility] Tizanidine HCl 4 mg 08/01/19 21:47 Zanaflex PO DAILY PRN Mild Pain Body Composition Height: 5 ft 8 in Weight: 168 lb 1.6 oz Body Mass Index (BMI): 25.5 Vital Signs Temperature: 97.9 F Pulse Rate: 65 Respiratory Rate: 16 Blood Pressure: 140/65 O2 Sat by Pulse Oximetry: 98 Physical Examination Appearance: Reports Ill-appearing, No pain distress and Well-nourished Ill-appearing: Mild Pain Distress: None Eyes: Reports KM, EOMI and Conjunctiva clear ENT: Reports Ears normal, Nose normal and Oropharynx normal; Denies TMs [place], Rhinorrhea, Epistaxis and Erythema Neck: Supple Respiratory: Reports Airway patent, Breath sounds equal, Respirations nonlabored and Wheezes (throughout); Denies Breath sounds clear, Breath sounds diminished, Crackles, Rhonchi and Retractions Cardiovascular: Reports RRR, Pulses normal, No rub and No murmur GI/: Reports Soft, Nontender, No masses, Bowel sounds normal and No Organomegaly Musculoskeletal: Reports Normal strength, ROM intact, No edema and No calf tenderness Skin: Reports Warm, Dry and Normal color; Denies Pale, Diaphoretic and Cyanotic Neurological: Reports Sensation intact, Motor intact, Reflexes intact, Cranial nerves intact, Alert and Oriented (X4) Psychiatric: Reports Affect appropriate, Mood appropriate and Anxious (anxious about eating and his care; plan of care discussed w/ diet advanced and patient much improved.) Lab/Tests/Diagnostic Imaging Lab/Tests/Diagnostic Imaging: Lab Review 08/01/19 08/01/19 08/02/19 13:26 13:26 04:45 WBC 9.42 RBC 4.86 Hgb 14.9 Hct 43.6 MCV 89.7 MCH 30.7 MCHC 34.2 RDW Coeff of [place] 13.7 Plt Count 277 Immature Gran % (Auto) 0.6 Neut % (Auto) 61.3 Lymph % (Auto) 24.7 [place] % (Auto) 6.2 Eos % (Auto) 6.4 Baso % (Auto) 0.8 Immature Gran # (Auto) 0.1 Neut # (Auto) 5.8 Lymph # (Auto) 2.3 [place] # (Auto) 0.6 Eos # (Auto) 0.6 Baso # (Auto) 0.1 Sodium 134.8 Potassium 4.22 Chloride 103.1 Carbon Dioxide 23.7 Anion Gap 12.22 BUN 45.7 H Creatinine 1.61 H Estimated GFR (MDRD) 43.00 BUN/Creatinine Ratio 28.38 Glucose 309.0 H Calcium 8.83 Magnesium 2.16 Total Bilirubin 0.38 AST 35.2 ALT 17.7 Alkaline Phosphatase 67.1 Total Protein 6.59 Albumin 3.61 Globulin 2.98 Albumin/Globulin Ratio 1.21 Urine Color Yellow Urine Clarity Clear Urine pH 7.0 Ur Specific [place] 1.025 Urine Protein 3+ H Urine Glucose (UA) Negative Urine Ketones Negative Urine Blood Negative Urine Nitrite Negative Urine Bilirubin Negative Urine Urobilinogen 0.2 Ur Leukocyte Esterase Negative Urine Microscopic WBC 0-2 Ur Squamous Epith Cells 0-2 Hyaline Casts 2-5 08/02/19 08/02/19 05:00 05:00 WBC 7.10 RBC 4.67 L Hgb 14.2 Hct 42.2 MCV 90.4 MCH 30.4 MCHC 33.6 RDW Coeff of [place] 13.8 Plt Count 268 Immature Gran % (Auto) 0.7 Neut % (Auto) 38.3 L Lymph % (Auto) 37.0 [place] % (Auto) 11.4 H Eos % (Auto) 11.5 H Baso % (Auto) 1.1 Immature Gran # (Auto) 0.1 Neut # (Auto) 2.7 Lymph # (Auto) 2.6 [place] # (Auto) 0.8 Eos # (Auto) 0.8 H Baso # (Auto) 0.1 Sodium 138.2 Potassium 4.18 Chloride 109.8 H Carbon Dioxide 22.1 Anion Gap 10.48 BUN 46.2 H Creatinine 1.45 H Estimated GFR (MDRD) 49.00 BUN/Creatinine Ratio 31.86 Glucose 113.3 H D Calcium 8.65 Magnesium Total Bilirubin 0.25 AST 21.8 ALT 15.1 Alkaline Phosphatase 61.6 Total Protein 6.30 Albumin 3.41 L Globulin 2.89 Albumin/Globulin Ratio 1.17 Urine Color Urine Clarity Urine pH Ur Specific [place] Urine Protein Urine Glucose (UA) Urine Ketones Urine Blood Urine Nitrite Urine Bilirubin Urine Urobilinogen Ur Leukocyte Esterase Urine Microscopic WBC Ur Squamous Epith Cells Hyaline Casts Patient: RAVI BERRIOS JRAcct:[id number] Record: [id number] : 1950Loc: EDRoom/Bed: Age/Sex: 68 / MADM Status: REG ERDate of Service: 08/01/19 Ordering Physician: YANA OSBORN MD Procedure(s): RIBS, UNILATERAL LEFT Report Number(s): [id number] Accession Number(s): [id number] cc: JANET GUALLPA GREGORY MD EXAM: LEFT RIBS HISTORY: Left rib pain FINDINGS: Left ribs three-view. No displaced rib fracture is identified. There is no pleural fluid or pneumothorax. IMPRESSION: 1. No rib fracture identified. Patient: RAVI BERRISO JRAcct:[id number] Record: [id number] : 1950Loc: EDRoom/Bed: Age/Sex: 68 / MADM Status: REG ERDate of Service: 08/01/19 Ordering Physician: YANA OSBORN MD Procedure(s): CHEST, 2 VIEWS PA & LAT Report Number(s): [id number] Accession Number(s): [id number] cc: JANET GUALLPA ; YANA OSBORN MD EXAM: CHEST FRONTAL AND LATERAL VIEWS HISTORY: Chest pain. COMPARISON: 07/27/2019 FINDINGS: Heart size is upper limit normal. Prior sternotomy. Atherosclerotic disease. There is a left pacemaker unit which is stable. No acute infiltrates are seen. No vascular congestion. There is no consolidation, visible pleural fluid or pneumothorax. Bones reveal no acute fracture. IMPRESSION: Atherosclerotic disease. Prominent heart size. No acute cardiopulmonary process. Orders Category Date Time Status ADMIT OBSERVATION [PLACE PATIENT OBSERVATION] .TO ADMISSION 08/01/19 20:01 Active MEDSURG (NON-MONITORED BED) EKG-(ED ONLY) Stat CARDIO 08/01/19 13:09 Completed NEBULIZER TREATMENT Routine CARDIO 08/01/19 18:57 Active NEBULIZER TREATMENT Stat CARDIO 08/01/19 18:57 Completed OXYGEN Routine CARDIO 08/01/19 20:38 Active ACCUCHECK (MED/SURG, SCU) [BLOOD GLUCOSE MONITORING] CARE 08/01/19 21:50 Active 0630,1100,1700,2100 ACTIVITY .BR with BRP CARE 08/01/19 18:54 Active GIVE HS SNACK 2100 CARE 08/01/19 22:59 Active INTAKE & OUTPUT Q8HR CARE 08/01/19 18:54 Active IV ACCESS ONCE CARE 08/01/19 14:56 Active VITAL SIGNS Q8HR CARE 08/01/19 18:54 Completed ADA 2000 EVA DIET DIETARY 08/02/19 Breakfast Ordered LOW SALT DIET [2 GRAM SODIUM DIET] DIETARY 08/02/19 Breakfast Ordered LOAN ASSOCIATE CONSULT [CONSULT LOAN ASSOCIATE] ONCE LOAN ASSOCIATE 08/01/19 21:41 Active CBC W/ AUTO DIFF DAILY@0600 LAB 08/02/19 05:00 Completed CBC W/ AUTO DIFF DAILY@0600 LAB 08/03/19 06:00 Ordered CBC W/ AUTO DIFF Stat LAB 08/01/19 13:26 Completed COMPREHENSIVE METABOLIC PANEL DAILY@0600 LAB 08/02/19 05:00 Completed COMPREHENSIVE METABOLIC PANEL DAILY@0600 LAB 08/03/19 06:00 Ordered COMPREHENSIVE METABOLIC PANEL Stat LAB 08/01/19 13:26 Completed MAGNESIUM Stat LAB 08/01/19 13:26 Completed URINALYSIS C & S IF INDICATED Routine LAB 08/01/19 23:01 Completed Albuterol Sulfate 0.083% Neb [Albuterol 0.083% Neb] MEDS 08/01/19 22:00 Active 2.5 mg NEB RTQ8H Albuterol Sulfate 0.083% Neb [Albuterol 0.083% Neb] MEDS 08/01/19 18:57 Discontinued 2.5 mg NEB RTQ8H PRN Apixaban [Eliquis] MEDS 08/01/19 21:00 Discontinued 5 mg PO BID Aspirin [Aspirin Chewable] MEDS 08/02/19 08:00 Active 81 mg PO DAILYWM Atorvastatin Calcium [Lipitor] MEDS 08/01/19 21:47 Active 80 mg PO BEDTIME Atorvastatin Calcium [Lipitor] MEDS 08/01/19 21:00 Discontinued 80 mg PO BID Carvedilol [Coreg] MEDS 08/01/19 21:00 Discontinued 3.125 mg PO BID Carvedilol [Coreg] MEDS 08/02/19 08:00 Active 3.125 mg PO BIDWM Dicyclomine HCl [Bentyl] MEDS 08/01/19 21:00 Active 10 mg PO TID Glipizide [Glucotrol] MEDS 08/02/19 06:30 Discontinued 5 mg PO BIDAC Glipizide [Glucotrol] MEDS 08/02/19 17:30 Active 5 mg PO BIDWM Hydrocodone Bit/Acetaminophen [[place] 7.5-325] MEDS 08/01/19 19:02 Active 1 tab PO Q4H PRN Insulin NPL/Insulin Lispro [Humalog Mix 75-25] MEDS 08/01/19 21:48 Active See Dose Instructions SUBCUT PRN PRN Isosorbide Mononitrate [Imdur] MEDS 08/02/19 09:00 Active 30 mg PO DAILY Lisinopril [Zestril] MEDS 08/01/19 21:00 Active 40 mg PO BID Nicotine 14 mg [Nicoderm 14 mg] MEDS 08/01/19 18:56 Discontinued 1 patch TD ONCE STA Sodium Chloride 0.9% [Sodium Chloride] 1,000 ml MEDS 08/01/19 19:00 Active IV 100 mls/hr Sodium Chloride 0.9% [Sodium Chloride] 1,000 ml MEDS 08/01/19 14:56 Discontinued IV BOLUS Theophylline Anhydrous [Theophylline ER 24Hr] MEDS 08/02/19 09:00 Active 400 mg PO DAILY Tizanidine HCl [Zanaflex] MEDS 08/01/19 19:00 Discontinued 4 mg PO DIRECTED Tizanidine HCl [Zanaflex] MEDS 08/01/19 21:47 Active 4 mg PO DAILY PRN albuterol sulfate [Ventolin HFA] MEDS 08/01/19 19:30 Discontinued 18 g INHALATION DIRECTED albuterol sulfate [Ventolin HFA] MEDS 08/01/19 21:47 Active 18 g INHALATION Q4H PRN dexlansoprazole [Dexilant] MEDS 08/02/19 09:00 Active 30 mg PO DAILY fenofibrate [fenofibrate] MEDS 08/02/19 09:00 Ordered 160 mg PO DAILY glycopyrrolate-formoterol [Bevespi Aerosphere] MEDS 08/01/19 21:00 Active 2 puff INH BID hydrocodone-acetaminophen [hydrocodone-acetaminophen] MEDS 08/02/19 07:16 Ordered 1 tab PO Q6H PRN magnesium MEDS 08/02/19 09:00 Ordered 750 mg PO TID magnesium oxide MEDS 08/01/19 21:00 Discontinued 1,200 mg PO TID magnesium oxide MEDS 08/01/19 22:42 Discontinued 750 mg PO TID nitroglycerin [nitroglycerin] MEDS 08/01/19 19:00 Active 0.4 mg SL Q5MIN X 3 DOSES PRN RESUSCITATION STATUS Routine OTHERS 08/01/19 18:54 Ordered CHEST, 2 VIEWS PA & LAT Stat RADS 08/01/19 13:18 Completed RIBS, UNILATERAL LEFT Stat RADS 08/01/19 13:20 Completed Medications Generic Name Dose Route Start Last Admin Trade Name Freq PRN Reason Stop Dose Admin Hydrocodone Bitart/Acetaminophen 1 tab 08/01/19 19:02 [place] 7.5-325 PO Q4H PRN Severe Pain Albuterol Sulfate 2.5 mg 08/01/19 22:00 08/02/19 04:45 Albuterol 0.083% Neb NEB 2.5 mg RTQ8H TISH Administration Aspirin 81 mg 08/02/19 08:00 Aspirin Chewable PO DAILYWM TISH Atorvastatin Calcium 80 mg 08/01/19 21:47 08/01/19 22:44 Lipitor PO 80 mg BEDTIME TISH Administration Carvedilol 3.125 mg 08/02/19 08:00 Coreg PO BIDWM TISH Dicyclomine HCl 10 mg 08/01/19 21:00 08/01/19 22:30 Bentyl PO 10 mg TID TISH Administration Glipizide 5 mg 08/02/19 17:30 Glucotrol PO BIDWM TISH Sodium Chloride 1,000 mls @ 100 mls/hr 08/01/19 19:00 08/02/19 05:30 Sodium Chloride IV 100 mls/hr .Q10H TISH Administration Insulin Lispro Protam/Lispro Human 0 unit 08/01/19 21:48 08/01/19 22:31 Humalog Mix 75-25 SUBCUT 3 unit PRN PRN Administration Hyperglycemia Protocol Isosorbide Mononitrate 30 mg 08/02/19 09:00 Imdur PO DAILY [facility] Lisinopril 40 mg 08/01/19 21:00 08/01/19 22:19 Zestril PO 40 mg BID TISH Administration Non-Formulary Medication 2 puff 08/01/19 21:00 08/01/19 22:31 Glycopyrrolate-Formoterol [Bevespi Aerosphere] INH 2 puff BID TISH Administration Non-Formulary Medication 0.4 mg 08/01/19 19:00 Nitroglycerin [Nitroglycerin] SL Q5MIN X 3 DOSES PRN CHEST PAIN Non-Formulary Medication 30 mg 08/02/19 09:00 Dexlansoprazole [Dexilant] PO DAILY TISH Non-Formulary Medication 18 gm 08/01/19 21:47 Albuterol Sulfate [Ventolin Hfa] IH Q4H PRN Wheezing Non-Formulary Medication 1 tab 08/02/19 07:16 Hydrocodone-Acetaminophen [Hydrocodone-Acetaminophen] PO Q6H PRN Pain Non-Formulary Medication 750 mg 08/02/19 09:00 Magnesium PO TID TISH Non-Formulary Medication 160 mg 08/02/19 09:00 Fenofibrate [Fenofibrate] PO DAILY [facility] Theophylline 400 mg 08/02/19 09:00 Theophylline Er 24hr PO DAILY [facility] Tizanidine HCl 4 mg 08/01/19 21:47 Zanaflex PO DAILY PRN Mild Pain Discontinued Medications Generic Name Dose Route Start Last Admin Trade Name Freq PRN Reason Stop Dose Admin Albuterol Sulfate 2.5 mg 08/01/19 18:57 Albuterol 0.083% Neb NEB RTQ8H PRN Bronchospasm Apixaban 5 mg 08/01/19 21:00 08/01/19 22:14 Eliquis PO Not Given BID [facility] Atorvastatin Calcium 80 mg 08/01/19 21:00 08/01/19 22:43 Lipitor PO Not Given BID [facility] Carvedilol 3.125 mg 08/01/19 21:00 08/01/19 22:31 Coreg PO 3.125 mg BID [facility] Administration Glipizide 5 mg 08/02/19 06:30 08/02/19 05:31 Glucotrol PO 5 mg BIDAC TISH Administration Sodium Chloride 1,000 mls @ 1,000 mls/hr 08/01/19 14:56 08/01/19 15:33 Sodium Chloride IV 08/01/19 15:55 1,000 mls/hr BOLUS STA Administration Nicotine 1 patch 08/01/19 18:56 08/01/19 22:15 Nicoderm 14 Mg TD 08/01/19 18:57 Not Given ONCE STA Non-Formulary Medication 1,200 mg 08/01/19 21:00 08/01/19 22:18 Magnesium Oxide PO Not Given TID TISH Non-Formulary Medication 18 gm 08/01/19 19:30 Albuterol Sulfate [Ventolin Hfa] IH DIRECTED [facility] Non-Formulary Medication 750 mg 08/01/19 22:42 08/01/19 22:45 Magnesium Oxide PO 750 mg TID TISH Administration Tizanidine HCl 4 mg 08/01/19 19:00 Zanaflex PO DIRECTED [facility] Assessment (1) Enteritis: Status: Acute Code(s): K52.9 - Noninfective gastroenteritis and colitis, unspecified SNOMED Code(s): 43233580 (2) Acute dehydration: Status: Acute Code(s): E86.0 - Dehydration SNOMED Code(s): 88793139 (3) Type 2 diabetes mellitus with insulin therapy: Status: Chronic Code(s): E11.9 - Type 2 diabetes mellitus without complications; Z79.4 - [employer] (current) use of insulin SNOMED Code(s): 04849689 (4) Atherosclerosis of coronary artery: Status: None SNOMED Code(s): 754118450 Qualifiers: Coronary Disease-Associated Artery/Lesion type: bypass graft [place] vs. transplanted heart: [place] heart Associated angina: angina presence unspecified Qualified Code(s): I25.810 - Atherosclerosis of coronary artery bypass graft(s) without angina pectoris (5) Congestive heart failure: Status: Acute Code(s): I50.9 - Heart failure, unspecified SNOMED Code(s): 91629746 Qualifiers: Heart failure chronicity: acute on chronic Heart failure type: systolic Qualified Code(s): I50.23 - Acute on chronic systolic (congestive) heart failure (6) Asthma: Status: Chronic Code(s): J45.909 - Unspecified asthma, uncomplicated SNOMED Code(s): 317806626 Qualifiers: Asthma severity: moderate Asthma persistence: unspecified Asthma complication type: unspecified Qualified Code(s): J45.909 - Unspecified asthma, uncomplicated (7) Shoulder pain: Status: Chronic Code(s): M25.519 - Pain in unspecified shoulder SNOMED Code(s): 83154305 Plan Plan: Enteritis--New complication w/ diarrhea & positive stool occult blood--PPI; IVF repenishment; monitor stools; if diarrhea returns, do stool cultures, O&P, and C-diff; Aofran prn N/V; recheck H/H if large amount of blood per rectum returns & alert [employer]/Hospitalist; will need GI referral for colonoscopy and further w-u [facility] or transfer to [facility] if symptoms severe now. Acute Dehydration--New complication of diarrhea; replace IVF; monitor labs; I&O; VS Q 4 hrs and prn. Type 2 DM w/ SSI--controlled w/ SSI at present; Con't home meds SSI; Sugar Tabs prn BS <70; Continue accucheck AC&HS. CAD--stable w/o chest pain; continue home meds; monitor VS & telemetry. Congestive Heart Failure--CXR is clear w/ no edema noted on PE exam; monitor labs, VS, daily wts, & I&O. Continue home meds. Asthma--slightly worse. Needs inhalers. Continue home meds on TISH basis that patient can refuse if he is not wheezing or feeling SOB; monitor pulse ox--can use O2 prn per protocol. R Shoulder Pain and other Chronic Pain w/ Osteoarthtitis--unchanged from chronic at home; con't home meds per pain management.
[2019-08-02] MEDS ORDERED: THEOPHYLLINE ER 24HR PO SCH (09:00)
[2019-08-02] MEDS ORDERED: IMDUR PO SCH (09:00)
[2019-08-02] MEDS ORDERED: NON-FORMULARY MEDICATION PO SCH ×2 (09:45→21:00)
--- NOTE | 2019-08-02 10:40 | PCM.PROG ---
10:[address] Cornelius ([phone]) called re: patient hospital admission as per patient request and instruction "my kidney MD wants to be called before you treat me." Dr. Cornelius given information on patient status, current orders, home meds, and treatment plan. Dr. Cornelius agrees w/ plan of care and requests for patient to see him when his office re-opens (closed due to coronavirus-19) . Patient informed and agrees w/ plan of care at this time. Sharlene Beltran, Case Management, informed and is making patient f-u appt. for August 14.
[2019-08-02] MEDS: COREG PO SCH ×2 (10:47→16:51)
[2019-08-02] MEDS: NON-FORMULARY MEDICATION PO SCH (10:48)
[2019-08-02] MEDS: FENOFIBRATE 160 MG PO SCH (10:48)
[2019-08-02] MEDS: MAGNESIUM PO SCH ×3 (10:49→20:27)
[2019-08-02] MEDS: BENTYL PO SCH ×3 (10:49→20:27)
[2019-08-02] MEDS: ELIQUIS PO SCH ×2 (10:50→20:28)
[2019-08-02] MEDS: THEOPHYLLINE ER 24HR PO SCH ×2 (10:52→20:28)
[2019-08-02] MEDS: ZESTRIL PO SCH ×2 (10:53→20:27)
[2019-08-02] MEDS: NON-FORMULARY MEDICATION (Dexlansoprazole [Dexilant] 30 MG) PO SCH (10:53)
[2019-08-02] MEDS: NON-FORMULARY MEDICATION (Glycopyrrolate-Formoterol [Bevespi Aerosphere] 2 PUFF) INH SCH ×2 (10:55→20:25)
[2019-08-02] MEDS ORDERED: ALBUTEROL SULFATE IH SCH (11:30)
[2019-08-02] MEDS: ALBUTEROL SULFATE IH SCH ×3 (13:09→20:34)
[2019-08-02] MEDS: GLUCOTROL PO SCH (16:51)
[2019-08-03] MEDS: SODIUM CHLORIDE 1,000 ML IV SCH (02:25)
[2019-08-03] MEDS: ALBUTEROL SULFATE IH SCH ×3 (03:03→08:58)
[2019-08-03] MEDS: ALBUTEROL 0.083% NEB NEB SCH (05:12)
[2019-08-03 05:15] LABS: HEMATOCRIT 39.4 % (42.0-52.0)
[2019-08-03] MEDS: THEOPHYLLINE ER 24HR PO SCH (08:52)
[2019-08-03] MEDS: NON-FORMULARY MEDICATION (Glycopyrrolate-Formoterol [Bevespi Aerosphere] 2 PUFF) INH SCH (08:52)
[2019-08-03] MEDS: ELIQUIS PO SCH (08:53)
[2019-08-03] MEDS: GLUCOTROL PO SCH (08:54)
[2019-08-03] MEDS: BENTYL PO SCH (08:54)
[2019-08-03] MEDS: FENOFIBRATE 160 MG PO SCH (08:55)
[2019-08-03] MEDS: NON-FORMULARY MEDICATION (Dexlansoprazole [Dexilant] 30 MG) PO SCH (08:55)
[2019-08-03] MEDS: COREG PO SCH (08:56)
[2019-08-03] MEDS: ZESTRIL PO SCH (08:56)
[2019-08-03] MEDS: NON-FORMULARY MEDICATION PO SCH (08:57)
[2019-08-03] MEDS: MAGNESIUM PO SCH (09:04)
--- NOTE | 2019-08-03 10:02 | PCM.DC ---
Final Diagnosis: Enteritis; Acute Dehydration (1) Enteritis: Status: Acute Code(s): K52.9 - Noninfective gastroenteritis and colitis, unspecified SNOMED Code(s): 10260088 (2) Acute dehydration: Status: Acute Code(s): E86.0 - Dehydration SNOMED Code(s): 21049878 (3) Type 2 diabetes mellitus with insulin therapy: Status: Chronic Code(s): E11.9 - Type 2 diabetes mellitus without complications; Z79.4 - halfway (current) use of insulin SNOMED Code(s): 92962264 (4) Atherosclerosis of coronary artery: Status: None SNOMED Code(s): 580139400 Qualifiers: Associated angina: angina presence unspecified Coronary Disease- Associated Artery/Lesion type: bypass graft [place] vs. transplanted heart: [place] heart Qualified Code(s): I25.810 - Atherosclerosis of coronary artery bypass graft(s) without angina pectoris (5) Congestive heart failure: Status: Acute Code(s): I50.9 - Heart failure, unspecified SNOMED Code(s): 48456134 Qualifiers: Heart failure chronicity: acute on chronic Heart failure type: systolic Qualified Code(s): I50.23 - Acute on chronic systolic (congestive) heart failure (6) Asthma: Status: Chronic Code(s): J45.909 - Unspecified asthma, uncomplicated SNOMED Code(s): 874161914 Qualifiers: Asthma complication type: unspecified Asthma persistence: unspecified Asthma severity: moderate Qualified Code(s): J45.909 - Unspecified asthma, uncomplicated (7) Shoulder pain: Status: Chronic Code(s): M25.519 - Pain in unspecified shoulder SNOMED Code(s): 64560631 Reason for Hospitalization: Enteritis w/ Acute Dehydration needing monitoring for diarrhea, CKD w/ hx hypomagnesia & hypercalcemia, elevated blood sugars, and concerns over heart disease. Patient has recently been started on Trulicity and presents also w/ Prognosis at Discharge: Guarded w/ CAD, CHF, Type 2 DM w/ SSI therapy, and CKD that has hypomagnesia and hypercalcemia as constant threat. Condition at Discharge: Resolving/Improving w/ Kidney function guarded w/ close f-u w/ nephrology needed. Patient has been up and about 30hrs w/o dizziness, weakness, N/V, diarrhea and has improved significantly w/ IVF's and treatments. Medications at Discharge: Ambulatory Orders Medication Instructions Recorded aspirin [Valerie Chewable] 81 mg PO DAILY 01/12/13 dexlansoprazole [Dexilant] 30 mg PO DAILY 12/02/15 albuterol sulfate 1 vial NEB RTQ4H 08/05/16 docusate sodium [Stool Softener] 100 mg PO PRN PRN 08/05/16 Humalog Mix 75-25(U-100)Insuln 1 unit SUBCUT 3-4XD PRN 12/10/16 furosemide [Lasix] 20 mg PO DAILY PRN 12/10/16 glipizide 5 mg PO BIDAC 12/10/16 apixaban [Eliquis] 5 mg PO BID 06/12/18 glycopyrrolate-formoterol [Bevespi 2 puff INHALATION BID 06/12/18 Aerosphere Inhaler] albuterol sulfate [Ventolin Hfa] 18 g INHALATION Q4H PRN 11/14/18 lisinopril 40 mg PO BID 11/14/18 nitroglycerin 0.4 mg SUBLINGUAL DIRECTED 11/14/18 sodium chloride-aloe vera [Saline 14.1 g NS DIRECTED 11/14/18 Nasal Gel] theophylline 200 mg PO Q12HR 11/14/18 tizanidine 4 mg PO DAILY PRN 11/14/18 atorvastatin [Lipitor] 80 mg PO DAILY 06/30/19 carvedilol 3.125 mg PO BID 06/30/19 dicyclomine 10 mg PO TID 06/30/19 fenofibrate 160 mg PO DAILY 06/30/19 hydrocodone-acetaminophen 1 tab PO Q6H PRN 08/02/19 magnesium 750 mg PO TID 08/02/19 Lab/Diagnostics: Laboratory Results WBC 7.34 K/ul (4.2-10.2) 08/03/19 04:32 RBC 4.32 10^6/ul (4.70-6.10) L 08/03/19 04:32 Hgb 13.3 g/dl (14.0-18.0) L 08/03/19 04:32 Hct 39.4 % (42.0-52.0) L 08/03/19 04:32 MCV 91.2 fl (80.0-94.0) 08/03/19 04:32 MCH 30.8 pg (27.0-31.0) 08/03/19 04:32 MCHC 33.8 (31.8-35.4) 08/03/19 04:32 RDW Coeff of [place] 13.6 % (11.6-14.8) 08/03/19 04:32 Plt Count 248 10^3/uL (140-440) 08/03/19 04:32 Immature Gran % (Auto) 0.7 % (0.0-5.0) 08/03/19 04:32 Neut % (Auto) 39.2 % (42.2-75.2) L 08/03/19 04:32 Lymph % (Auto) 38.6 (10.0-50.0) 08/03/19 04:32 Rich % (Auto) 9.3 (0-10) 08/03/19 04:32 Eos % (Auto) 11.0 % (0.0-7.0) H 08/03/19 04:32 Baso % (Auto) 1.2 % (0.0-3.0) 08/03/19 04:32 Immature Gran # (Auto) 0.1 (0.0-1.0) 08/03/19 04:32 Neut # (Auto) 2.9 K/ul (2.0-6.9) 08/03/19 04:32 Lymph # (Auto) 2.8 K/uL (0.60-3.4) 08/03/19 04:32 Rich # (Auto) 0.7 K/uL (0.4-2.0) 08/03/19 04:32 Eos # (Auto) 0.8 K/ul (0.0-0.7) H 08/03/19 04:32 Baso # (Auto) 0.1 K/uL (0-0.2) 08/03/19 04:32 Sodium 137.8 mmol/L (134.5-145) 08/03/19 04:32 Potassium 4.06 mmol/L (3.5-5.1) 08/03/19 04:32 Chloride 110.7 mmol/L (98-107) H 08/03/19 04:32 Carbon Dioxide 19.9 mmol/L (22-30.0) L 08/03/19 04:32 Anion Gap 11.26 08/03/19 04:32 BUN 32.5 mg/dL (9-20) H 08/03/19 04:32 Creatinine 1.14 mg/dL (0.60-1.10) H 08/03/19 04:32 Estimated GFR (MDRD) 64.00 mL/min 08/03/19 04:32 BUN/Creatinine Ratio 28.50 08/03/19 04:32 Glucose 87.7 mg/dL (74-106) 08/03/19 04:32 Calcium 8.21 mg/dL (8.4-10.2) L 08/03/19 04:32 Magnesium 2.16 mg/dL (1.6-2.3) 08/01/19 13:26 Total Bilirubin 0.24 mg/dL (0.2-1.3) 08/03/19 04:32 AST 20.1 U/L (17-59) 08/03/19 04:32 ALT 14.3 U/L (0-50) 08/03/19 04:32 Alkaline Phosphatase 54.1 U/L (56-119) L 08/03/19 04:32 Total Protein 5.77 g/dL (6.3-8.2) L 08/03/19 04:32 Albumin 3.09 g/dL (3.5-5.0) L 08/03/19 04:32 Globulin 2.68 08/03/19 04:32 Albumin/Globulin Ratio 1.15 08/03/19 04:32 Urine Color Yellow (YELLOW) 08/02/19 04:45 Urine Clarity Clear (CLEAR) 08/02/19 04:45 Urine pH 7.0 (5-9) 08/02/19 04:45 Ur Specific [facility] 1.025 (1.005-1.030) 08/02/19 04:45 Urine Protein 3+ (NEGATIVE) H 08/02/19 04:45 Urine Glucose (UA) Negative (NEGATIVE) 08/02/19 04:45 Urine Ketones Negative (NEGATIVE) 08/02/19 04:45 Urine Blood Negative (NEGATIVE) 08/02/19 04:45 Urine Nitrite Negative (NEGATIVE) 08/02/19 04:45 Urine Bilirubin Negative (NEGATIVE) 08/02/19 04:45 Urine Urobilinogen 0.2 (0.2) 08/02/19 04:45 Ur Leukocyte Esterase Negative (NEGATIVE) 08/02/19 04:45 Urine Microscopic WBC 0-2 (0-2) 08/02/19 04:45 Ur Squamous Epith Cells 0-2 (0-5) 08/02/19 04:45 Hyaline Casts 2-5 (NOT PRESENT) 08/02/19 04:45 Patient: RAVI BERRIOS JRAcct:[id number] Record: [id number] : 1950Loc: EDRoom/Bed: Age/Sex: 68 / MADM Status: REG ERDate of Service: 08/01/19 Ordering Physician: YANA OSBORN MD Procedure(s): RIBS, UNILATERAL LEFT Report Number(s): [id number] Accession Number(s): [id number] cc: JANET GUALLPA GREGORY MD EXAM: LEFT RIBS HISTORY: Left rib pain FINDINGS: Left ribs three-view. No displaced rib fracture is identified. There is no pleural fluid or pneumothorax. IMPRESSION: 1. No rib fracture identified. Patient: RAVI BERRIOS JRAcct:[id number] Record: [id number] : 1950Loc: EDRoom/Bed: Age/Sex: 68 / MADM Status: REG ERDate of Service: 08/01/19 Ordering Physician: YAAN OSBORN MD Procedure(s): CHEST, 2 VIEWS PA & LAT Report Number(s): [id number] Accession Number(s): [id number] cc: JANET GUALLPA GREGORY MD EXAM: CHEST FRONTAL AND LATERAL VIEWS HISTORY: Chest pain. COMPARISON: 07/27/2019 FINDINGS: Heart size is upper limit normal. Prior sternotomy. Atherosclerotic disease. There is a left pacemaker unit which is stable. No acute infiltrates are seen. No vascular congestion. There is no consolidation, visible pleural fluid or pneumothorax. Bones reveal no acute fracture. IMPRESSION: Atherosclerotic disease. Prominent heart size. No acute cardiopulmonary process. Education Provided to Patient and Family: Continue home meds as before admissi on. Continue blood sugar checks as before admission with sliding scale insulin. Follow Chronic Kidney Disease diet w/ Diabetic diet--see handouts. Drink 8-10 eight ounces of water daily, avoiding caffeine drinks. Activity as tolerated---follow CDC guidelines for "sheltering in" at home as discussed. Follow-up w/ Janet Guallpa APRN, in 5-7 days. Follow-up w/ Dr. Yoseph Cornelius, fire manager, on August 14 @ 10AM. Follow-ups: Follow-up with Dr. Cornelius, fire manager as appt. made per Case Management. August 14. 10AM. Follow-up with Janet Guallpa NP in 5-7 days or sooner problems. Discharge Disposition: Home Hospital Course: Ravi Berrios Jr is a 68 yo male presenting to [facility] ER 08/01/2019 ambulatory w/ onset 07:00 08/01/2019 of mild dizziness/lightheadedness w/ associated w/ "tunnel vision of room spinning w/ getting up and getting dressed". As the day progressed he experienced dull constant frontal headache w/ mild fatigue, falling to sleep easily while waiting in the ER, yesterday had 15-18 episodes of small amt brown to yellowish liquid stools decreasing to 1 episode since Inpatient admission around 5pm yesterday. He denies f/c, weakness, sweats, loss of appetite, ST, ear pain, sneezing, CP, palpitations, seizures, tremors, abdominal pain, or N/V. See ROS. He has COPD w/ his "usual" wheezing and cough w/ occasional clear sputum production. He denies any recent travel or known contacts w/ ill persons. Patient notes he drinks large quantities of water but was having large volume loss w/ diarrhea. He is concerned about his kidney status and reports seeing Dr. Yoseph Cornelius 4-5 yrs "to keep an eye on my kidneys" and that if any treatment is given we should notify Dr. Cornelius first per MD request. Patient has hx Type2 DM w/ SSI use, CAD post 1999 5 vessel CABG & 2 stents same year, HLD, likelyl CKD (patient denies any kidney disease), Essential HTN, Asthma/COPD, Chronic pain issues involving Osteoarthitis of Spine, R shoulder and knees, and unknown stage CHF. He sees Dr. Prieto for pain management. Patient states he takes his medications routinely not missing doses. [place] confirmation of home meds w/ RX per Dr. Prieto verified w/ compliance. ER/AM labs note CBC essentially normal; CMP w/ abnormals BUN 46.2H, Creatinine 1.45H, Glucose 309.0 to 113.3; urinalysis normal except 3+Protein. CXR noted known atherosclerotic disease, prominent heart size, and no acute cardiopulmonary process. Patient also had R ribs x-ray d/t c/o's of R lateral chest pain at home feeling like stabbing lasting 1-2 minutes that noted no fractures, no displaced ribs or pleural effusions noted. Patient was admitted for observation for Enteritis and Acute Dehydration for IVF replacement and monitoring of labs including kidney function and elevated glucose. Patient was improving each day w/ IVF w/ labs especially BUN/Creatinine noted to slowly improve. He experienced no more BM's after admission and never had any N/V. After initial IVF hydration, the dizziness resolved within 14 hrs and did not return. His hospital stay was essentially uneventful and he was d/c with Bun/Creatinine 32.5/1.14 close to his normal readings on other visits. On discharge patient is stable. His appetite is good; he is tolerating ambulation w/o dizziness and has a steady gait. His lungs have some wheezes at times as is normal with his asthmatic COPD but improves w/ his home inhalers and CXR indicates no significant findings. He has had no pain, diarrhea, N/V, edema, or other complaints. His blood sugars have been well controlled w/ home meds and SSI w/ last readings 109, 101, 122, 88, and 178 w/ no signs of hypoglycemia. Latest VS are: BP 139/71, P 64, R 18, T 98.5 F, and O2 Sat RA 98%. See H&P for further information.
[2019-08-03 14:06] VITALS: BP 126/71; TEMP 98.7
== END 2019-08-03 13:20 | disposition home or self-care (01) ==
LOC: MEDSURG B 12:47 → ED 12:47 → MEDSURG B 20:01
PROVIDERS: ADMIT Nurse Practitioner Family; ATTEND Nurse Practitioner Family
DX: Z95.0 Presence of cardiac pacemaker; I50.23 Acute on chronic systolic (congestive) heart failure; G89.29 Other chronic pain; J44.9 Chronic obstructive pulmonary disease, unspecified; Z79.4 Long term (current) use of insulin; M25.511 Pain in right shoulder; K52.9 Noninfective gastroenteritis and colitis, unspecified; E86.0 Dehydration; R06.02 Shortness of breath; F17.210 Nicotine dependence, cigarettes, uncomplicated; R42 Dizziness and giddiness; I25.810 Atherosclerosis of coronary artery bypass graft(s) without angina pectoris; J45.909 Unspecified asthma, uncomplicated; E78.5 Hyperlipidemia, unspecified; N18.9 Chronic kidney disease, unspecified; Z95.5 Presence of coronary angioplasty implant and graft; Z79.899 Other long term (current) drug therapy; E11.9 Type 2 diabetes mellitus without complications